=== PATIENT | female | born 1980 | race Caucasian/White ===

== ENCOUNTER 2018-01-09 16:04 | Emergency (ER) | payer BC, SELFPAY ==
[2018-01-09 16:05] VITALS: BP 157/93; PULSE 84; RESP 16; TEMP 36.7; O2SAT 97; BMI 35.3
[2018-01-09 19:07] LABS: Absolute Lymphocyte Count 2.29 X10^3/ul (0.83-4.51); Absolute Neutrophil Count 4.9 X10^3/uL (2.0-7.7); Basophil# 0.01 X10^3/uL; Basophil% 0.1 % (0-1); Eosinophil# 0.17 X10^3/uL; Eosinophils% 2.2 % (0-5); Hematocrit 45.3 % (37-47); Hemoglobin 15.7 g/dl (12.0-15.0); Lymphocyte # 2.29 X10^3/ul (4.0); Lymphocyte % 29.5 % (19-41); Mean Corp Hgb Conc 34.7 g/gl (32-36); Mean Corpuscular Volume 83.7 fL (81-99); Mean Platelet Vol. 8.8 fl (6.2-12.0); Monocyte# 0.42 X10^3/uL; Monocyte% 5.4 % (0-10); Neutrophil # 4.86 X10^3/uL (2.7-7.7); Neutrophil % 62.7 % (47-70); Platelet Count 171 K/mm3 (150-450); RBC Distribution Width SD 38.7 fl (35.1-43.9); Red Blood Count 5.41 M/mm3 (4.2-5.4); White Blood Count 7.8 K/mm3 (4.4-11.0)
[2018-01-09 19:09] LABS: POSITIVE COUNT NO; POSITIVE DIFFERENTIAL NO; POSITIVE MORPHOLOGY NO
[2018-01-09 19:17] LABS: Anion Gap 8 (5-15); BUN 13 mg/dL (7-18); BUN/Creat Ratio 17.2 RATIO (10-20); Calcium,Total 8.9 mg/dL (8.5-10.1); Chloride 109 mmol/L (98-107); Creatinine, Serum 0.76 mg/dL (0.55-1.02); EST Glomerular Filtration Rate 93 mL/min (>60); Est Glom Filt Rate - Afr Amer 112 mL/min (>60); Estimated Creatinine Clearance 89.22 ml/min; Glucose 84 mg/dL (74-106); Potassium 3.8 mmol/L (3.5-5.1); Sodium Level 141 mmol/L (136-145)
[2018-01-09 19:21] VITALS: RESP 18
[2018-01-09 19:24] LABS: Bacteria 0 SEEN /hpf (None Seen); Mucous, Urine 0 SEEN /hpf (<or=2+); White Blood Cells 0 SEEN /hpf (0-5)
[2018-01-09 19:29] LABS: Color, Urine Yellow (Yellow); Glucose, Dipstick Normal (Normal); Ketone-Dipstick Negative (Negative); Leukocyte Esterase-Dipstick Negative /ul (Negative); Nitrite-Dipstick Negative (Negative); Occult Blood-Urine 10 /ul (Negative); Protein-Dipstick Negative (Negative); Urine Bilirubin Dipstick Negative (Negative); Urine Clarity Sl. Cloudy (Clear); Urine Urobilinogen Normal (Normal)
[2018-01-09 19:36] LABS: Red Blood Cells-Urine 0-5 SEEN /hpf (0-5); Squamous Epithelial Cells - UA 0-5 SEEN /hpf (5-10)
--- NOTE | 2018-01-09 20:54 | ED.VISSUMM ---
- ER Visit Summary Date of Service: 01/09/18 Chief Complaint: Abdominal pain History of Present Illness: The patient is a 37 F who has abdominal pain with onset May. She reports the pain was worse in July and August. Pain is increased over the past several days. She contacted her career guidance counselor Dr. Zeinab Tristan. She states she could not wait for her scheduled appointment January 13. She is status post hysterectomy and right oophorectomy. She has history of ovarian cyst. She states she is having pain where her cervix would be. She states the pain is worse with pelvic tilting. She denies fever, chills night sweats. She denies ocular, visual auditory symptoms. She denies cardiovascular respiratory symptoms. She does complain of frequency without dysuria or hematuria. She denies myalgias, arthralgias or back pain. She denies rash or trauma. She denies headache, anesthesia, paresthesia or motor weakness. Review of systems otherwise negative. Past medical history ovarian cyst. Physical Examination: Patient vital signs noted and blood pressure is elevated 157/93. She is afebrile. HEENT is unremarkable. Heart is regular without murmur, gallop or rub. S1 and S2 are normal. Lungs are clear to auscultation with good movement of air bilaterally. Abdomen is remarkable for 2 pain out of proportion to tactile stimulus and palpation. There is no evidence of trauma or skin lesions. There is no CVA tenderness noted. There is no evidence of inguinal hernia or inguinal lymphadenopathy. Neuro exam is nonfocal. Affect is flat Test Results: CBC is unremarkable. Hemoglobin is 15.7 which slightly elevated. Basic metabolic panel is unremarkable, chloride slightly elevated 109 UA is negative. Emergency Department Course and Treatment: With history of pain since May and exam that is medically benign doubt gynecologic origin. CBC, BMP and UA were obtained and are unremarkable. Treatment Plan: Anti-inflammatory since there is no contraindication and keep appointment with rotor coil taper for January 13Tuesday Disposition: Discharge stable condition Impression: Predominantly left lower quadrant pain unknown etiology This note was generated with Image[employer] dictation software. It may contain incorrect words, spelling, and punctuation that were not noted in review of the chart prior to signing ED Disposition - Plan for ED Patient: Disposition: Home or Assisted Living Chief Complaint: Abd Pain Instructions: ED Abdominal Pain Unkn Cause Referrals: Marilyn Olivia PA [Primary Care Provider] - Zeinab Tristan MD [STAFF PHYSICIAN] - Keep [facility]a appointment
--- NOTE | 2018-01-09 20:58 | ED.DCSUM_ITS ---
- ER Visit Summary Date of Service: 01/09/18 Chief Complaint: Abdominal pain History of Present Illness: The patient is a 37 F who has abdominal pain with onset May. She reports the pain was worse in July and August. Pain is increased over the past several days. She contacted her energy manager Dr. Zeinab Tristan. She states she could not wait for her scheduled appointment January 13. She is status post hysterectomy and right oophorectomy. She has history of ovarian cyst. She states she is having pain where her cervix would be. She states the pain is worse with pelvic tilting. She denies fever, chills night sweats. She denies ocular, visual auditory symptoms. She denies cardiovascular respiratory symptoms. She does complain of frequency without dysuria or hematuria. She denies myalgias, arthralgias or back pain. She denies rash or trauma. She denies headache, anesthesia, paresthesia or motor weakness. Review of systems otherwise negative. Past medical history ovarian cyst. Physical Examination: Patient vital signs noted and blood pressure is elevated 157/93. She is afebrile. HEENT is unremarkable. Heart is regular without murmur, gallop or rub. S1 and S2 are normal. Lungs are clear to auscultation with good movement of air bilaterally. Abdomen is remarkable for 2 pain out of proportion to tactile stimulus and palpation. There is no evidence of trauma or skin lesions. There is no CVA tenderness noted. There is no evidence of inguinal hernia or inguinal lymphadenopathy. Neuro exam is nonfocal. Affect is flat Test Results: CBC is unremarkable. Hemoglobin is 15.7 which slightly elevated. Basic metabolic panel is unremarkable, chloride slightly elevated 109 UA is negative. Emergency Department Course and Treatment: With history of pain since May and exam that is medically benign doubt gynecologic origin. CBC, BMP and UA were obtained and are unremarkable. Treatment Plan: Anti-inflammatory since there is no contraindication and keep a ppointment with clinical support tech for January 13Tuesday Disposition: Discharge stable condition Impression: Predominantly left lower quadrant pain unknown etiology This note was generated with [employer] dictation software. It may contain incorrect words, spelling, and punctuation that were not noted in review of the chart prior to signing ED Disposition - Plan for ED Patient: Disposition: Home or Assisted Living Chief Complaint: Abd Pain Instructions: ED Abdominal Pain Unkn Cause Referrals: Marilyn Olivia PA [Primary Care Provider] - Zeinab Tristan MD [STAFF PHYSICIAN] - Keep [place] appointment
[2018-01-09 21:05] VITALS: RESP 18
== END 2018-01-09 21:05 | disposition home or self-care (01) ==
PROVIDERS: Emergency Provider Emergency Medicine; Family Provider Physician Assistant; PCP Physician Assistant
DX: R10.32 Left lower quadrant pain (principal); E66.9 Obesity, unspecified
CPT/HCPCS: 80048; 81001; 85025; 99283; A4216

== ENCOUNTER → 2018-01-11 17:56 | Outpatient (CLI) | payer BC, SELFPAY ==
[2018-01-09 16:05] VITALS: BMI 35.3
--- NOTE | 2018-01-11 18:01 | US_ITS ---
STUDY: ULTRASOUND OF THE FEMALE PELVIS REASON FOR EXAM: Female, 37 years old. Left pelvic pain LMP: Unknown. TECHNIQUE: Transverse and longitudinal imaging of the pelvis was obtained transabdominally and transvaginally using real-time ultrasound. COMPARISON: Pelvic ultrasound report dated September 02, 2010 FINDINGS: The uterus is surgically absent. The right ovary is surgically absent. The left ovary is visualized. The left ovary measures 3.4 x 2.4 x 2.7 cm. There are follicles in the left ovary without a dominant cyst. There is normal arterial and normal venous vascularity. There is no visualized left adnexal mass or complex lesion. There is no fluid in the cul-de-sac. No significant abnormalities are seen on limited visualization of the urinary bladder. US/Pelvic (Non ) IMPRESSION: No abnormalities are seen in the left ovary. Normal-appearing follicles are scattered in the left ovary. The right ovary and uterus are surgically absent. There is no free fluid. Electronically Signed: Krysta Chandra MD at 22:19 EST Tel Direct: [phone], Service support ,
--- NOTE | 2018-01-11 18:02 | US_ITS ---
STUDY: ULTRASOUND OF THE FEMALE PELVIS REASON FOR EXAM: Female, 37 years old. Left pelvic pain LMP: Unknown. TECHNIQUE: Transverse and longitudinal imaging of the pelvis was obtained transabdominally and transvaginally using real-time ultrasound. COMPARISON: Pelvic ultrasound report dated September 02, 2010 FINDINGS: The uterus is surgically absent. The right ovary is surgically absent. The left ovary is visualized. The left ovary measures 3.4 x 2.4 x 2.7 cm. There are follicles in the left ovary without a dominant cyst. There is normal arterial and normal venous vascularity. There is no visualized left adnexal mass or complex lesion. There is no fluid in the cul-de-sac. No significant abnormalities are seen on limited visualization of the urinary bladder. US/Transvaginal Non- IMPRESSION: No abnormalities are seen in the left ovary. Normal-appearing follicles are scattered in the left ovary. The right ovary and uterus are surgically absent. There is no free fluid. Electronically Signed: Krysta Chandra MD at 22:19 EST Tel Direct: [phone], Service support ,
== END ==
PROVIDERS: Family Provider Physician Assistant; PCP Physician Assistant; Referring Provider Obstetrics & Gynecology; Visit Provider Obstetrics & Gynecology
DX: R10.9 Unspecified abdominal pain (principal)
CPT/HCPCS: 76830; 76856; 93976

== ENCOUNTER → 2018-01-13 14:08 | Outpatient (CLI) | payer BC, SELFPAY ==
[2018-01-09 16:05] VITALS: BMI 35.3
[2018-01-13 16:11] LABS: Estradiol 95.1 pg/mL
[2018-01-13 16:18] LABS: Progesterone Level 0.22 ng/mL (See Comment)
== END ==
PROVIDERS: Visit Provider Obstetrics & Gynecology
DX: N39.0 Urinary tract infection, site not specified (principal); N64.4 Mastodynia; N94.3 Premenstrual tension syndrome
CPT/HCPCS: 36415; 82670; 84144; 84403; 87086

== ENCOUNTER → 2018-03-15 10:33 | Outpatient (CLI) | payer BC, SELFPAY ==
[2018-03-15 13:50] LABS: Hematocrit 43.9 % (37-47); Hemoglobin 14.7 g/dl (12.0-15.0); Mean Corp Hgb Conc 33.5 g/gl (32-36); Mean Corpuscular Hgb 28.7 pg (27.0-32.0); Mean Corpuscular Volume 85.7 fL (81-99); Mean Platelet Vol. 9.7 fl (6.2-12.0); Platelet Count 178 K/mm3 (150-450); RBC Distribution Width CV 13.1 % (11.6-14.6); RBC Distribution Width SD 40.4 fl (35.1-43.9); Red Blood Count 5.12 M/mm3 (4.2-5.4); Scan Indicated on CBC? Y/N NO; White Blood Count 5.7 K/mm3 (4.4-11.0)
[2018-03-15 14:11] LABS: Estradiol 120.2 pg/mL; Free T3 2.5 pg/mL (2.18-3.98); Progesterone Level 8.11 ng/mL (See Comment); T4 Free Direct 0.99 ng/dL (0.76-1.46); Thyroid Stim Hormone (TSH) 2.15 uIU/mL (0.358-3.74)
[2018-03-15 14:12] LABS: Hemoglobin A1c 4.9 % (4.2-6.3)
== END ==
PROVIDERS: Visit Provider Obstetrics & Gynecology
DX: N94.3 Premenstrual tension syndrome (principal)
CPT/HCPCS: 36415; 82670; 83036; 84144; 84439; 84443; 84481; 85027

== ENCOUNTER → 2018-03-20 08:51 | Outpatient (CLI) | payer BC, SELFPAY ==
--- NOTE | 2018-03-20 | US_ITS ---
STUDY: ULTRASOUND BREAST - LEFT REASON FOR EXAM: Female, 37 years old. Palpable lump left breast. TECHNIQUE: Axial and longitudinal images of the LEFT breast were performed with a high resolution ultrasound transducer. COMPARISON: Comparison is made with prior mammogram done earlier today. FINDINGS: LEFT Breast: The upper outer quadrant of the left breast was examined by ultrasound. There is homogeneous fibroglandular tissue. No sonographic abnormality is seen. US/Breast Limited Unilateral IMPRESSION: No sonographic abnormality is seen. ASSESSMENT CATEGORY: BIRADS Category 1: Negative. A letter regarding these results will be sent to the patient by the facility within 30 days. Electronically Signed: Jimmy Jensen MD at 10:20 EST , Service support ,
--- NOTE | 2018-03-20 08:56 | BI_ITS ---
MAMMOGRAPHY - BILATERAL DIAGNOSTIC REASON FOR EXAM: Female, 37 years old. Pain in the left upper outer quadrant. PERTINENT HISTORY: Grandmother with breast cancer. Aunt with breast cancer. TECHNIQUE: Digital bilateral breast wilfredo (3D mammographic acquisition) in the CC and MLO projections. 2-D mediolateral oblique (MLO) and craniocaudad (CC) views of both breasts were obtained. CAD: Full Field Digital Mammography with Computer Added Detection was performed. COMPARISON: Comparison is made with prior study dated April 23, 2015. FINDINGS: Breast Composition: The breasts are heterogeneously dense, which may obscure small masses. There is a 4.2 mm x 3.6 mm well-defined nodule in the upper outer quadrant of the right breast. Correlation with ultrasound is recommended. Stable small bilateral axillary lymph nodes. No other significant abnormalities are identified. BI/DIAG MAMM W/CAD, BILAT IMPRESSION: With the patient's history of a palpable abnormality and tenderness of the upper outer quadrant of the left breast, correlation with ultrasound is recommended. Targeted ultrasound of the right breast for a 4.2 mm x 3.6 mm nodule is recommended as well. ASSESSMENT CATEGORY: BIRADS Category 0: Incomplete. Need additional imaging evaluation. A letter regarding these results will be sent to the patient by the facility within 30 days. Approximately 10% of breast cancers are not detected by mammography. A normal mammogram should not delay biopsy of a clinically suspicious abnormality. Electronically Signed: Jimmy Jensen MD at 12:52 EST , Service support ,
== END ==
PROVIDERS: Family Provider Physician Assistant; PCP Physician Assistant; Referring Provider Obstetrics & Gynecology; Visit Provider Obstetrics & Gynecology
DX: N63.0 Unspecified lump in unspecified breast (principal)
CPT/HCPCS: 76642; 77062; 77066; G0279

== ENCOUNTER → 2018-03-23 08:49 | Outpatient (CLI) | payer BC, SELFPAY ==
--- NOTE | 2018-03-23 08:51 | US_ITS ---
STUDY: ULTRASOUND BREAST - RIGHT REASON FOR EXAM: Female, 37 years old. Abnormal screening mammogram. TECHNIQUE: Axial and longitudinal images of the RIGHT breast were performed with a high resolution ultrasound transducer. COMPARISON: Comparison made with prior mammogram dated March 20, 2018. FINDINGS: RIGHT Breast: There is a 5 mm x 4 mm x 3 mm well-defined hypoechoic nodule suggestive of a small lymph node at the 10:00 position breast at 4 sinus and nipple. US/Breast Limited Unilateral IMPRESSION: The mammographic abnormality corresponds to a benign-appearing lymph node. Routine mammographic follow-up is recommended. ASSESSMENT CATEGORY: BIRADS Category 2: Benign. A letter regarding these results will be sent to the patient by the facility within 30 days. Electronically Signed: Jimmy Jensen MD at 13:51 EST , Service support ,
== END ==
PROVIDERS: Family Provider Physician Assistant; PCP Physician Assistant; Referring Provider Obstetrics & Gynecology; Visit Provider Obstetrics & Gynecology
DX: R92.2 Inconclusive mammogram (principal)
CPT/HCPCS: 76642

== ENCOUNTER → 2018-05-05 16:08 | Outpatient (CLI) | payer BC, SELFPAY ==
[2018-05-05 16:46] LABS: Absolute Lymphocyte Count 2.32 X10^3/ul (0.83-4.51); Absolute Neutrophil Count 5.9 X10^3/uL (2.0-7.7); Basophil# 0.02 X10^3/uL; Basophil% 0.2 % (0-1); Eosinophil# 0.12 X10^3/uL; Eosinophils% 1.4 % (0-5); Hematocrit 43.5 % (37-47); Hemoglobin 14.9 g/dl (12.0-15.0); Lymphocyte # 2.32 X10^3/ul (4.0); Lymphocyte % 26.2 % (19-41); Mean Corp Hgb Conc 34.3 g/gl (32-36); Mean Corpuscular Hgb 29.1 pg (27.0-32.0); Mean Platelet Vol. 9.2 fl (6.2-12.0); Monocyte# 0.45 X10^3/uL; Monocyte% 5.1 % (0-10); Neutrophil % 66.8 % (47-70); Platelet Count 190 K/mm3 (150-450); RBC Distribution Width CV 12.8 % (11.6-14.6); RBC Distribution Width SD 39.4 fl (35.1-43.9); Red Blood Count 5.12 M/mm3 (4.2-5.4); White Blood Count 8.8 K/mm3 (4.4-11.0)
[2018-05-05 16:47] LABS: POSITIVE COUNT NO; POSITIVE DIFFERENTIAL NO; POSITIVE MORPHOLOGY NO
[2018-05-05 17:02] LABS: Erythrocyte Sedimentation Rate 1 mm/hr (0-20)
[2018-05-09 13:15] LABS: EBV Acute VCA IgM < 36.0 U/mL (0.0-35.9); EBV Early Antigen IgG 20.3 U/mL (0.0-8.9)
== END ==
PROVIDERS: Family Provider Physician Assistant; PCP Physician Assistant; Referring Provider Otolaryngology Otolaryngology/Facial Plastic Surgery; Visit Provider Otolaryngology Otolaryngology/Facial Plastic Surgery
DX: J32.9 Chronic sinusitis, unspecified (principal); R50.9 Fever, unspecified; R53.83 Other fatigue
CPT/HCPCS: 36415; 85025; 85652; 86663; 86664; 86665; 87070; 87205

== ENCOUNTER 2018-11-01 15:47 | Emergency (ER) | payer BC, SELFPAY ==
[2018-11-01 15:47] VITALS: BP 135/95; PULSE 99; RESP 18; TEMP 36.8; O2SAT 99
[2018-11-01 15:48] VITALS: BP 135/95; PULSE 97; RESP 18; TEMP 36.8; O2SAT 99; BMI 38.9
--- NOTE | 2018-11-01 16:08 | EKG12_ITS ---
Test Reason : CP/PALPITATIONS Blood Pressure : / mmHG Vent. Rate : 102 BPM Atrial Rate : 102 BPM P-R Int : 160 ms QRS Dur : 108 ms QT Int : 350 ms P-R-T Axes : 061 009 047 degrees QTc Int : 456 ms Sinus tachycardia Incomplete right bundle branch block Borderline ECG Confirmed by NAWAF TIM, JACLYN ([id number]), fan mail editor DIANDRA BAPTISTE ([id number]) on 11/03/2018 10:18:54 A M Referred By: MIRANDA/KUMAR Confirmed By:DIOR MCCRACKEN MD
--- NOTE | 2018-11-01 16:10 | ED.VIS.GEN ---
History of Present Illness Chief Complaint: Palpitations Informant: Patient Onset: Hours - 2 Narrative: Patient is a 37-year-old female with history of melanoma in situ and gallbladder polyps presenting with palpitations. Patient states about 2 hours ago she suddenly felt that her heart was racing and slightly lightheaded. She states she had chest tightness associated with this. Patient states she was wearing her Fitbit and her heart rate was 140. Patient states she felt very bad with this and came to the emergency room. She notes that she has had some chest tightness that has been pleuritic in nature over the past week. In addition she does feel slightly short of breath when she takes a deep breath. She denies any cough. Notes that over the past month she had a 10 pound unintentional weight gain. In addition she has had increased facial flushing. During this episode patient also feel that she has some tingling amd paresthesias going down her left arm. Patient states she is not concern for as she has had a prior hysterectomy. Patient denies any other complaints at this time. She denies any nausea, vomiting or abdominal pain. She does get intermittent pain over her gallbladder but does not have any currently. She denies any recent travel, leg swelling or history of DVT/PE. Past Medical History - Allergies and Home Meds Allergies/Adverse Reactions: Allergies amoxicillin trihydrate [From Augmentin] Allergy (Verified 12/26/12 14:35) Rash potassium clavulanate [From Augmentin] Allergy (Verified 12/26/12 14:35) Rash Primary Care Physician: Marilyn Olivia PA [Primary Care Provider] - Surgical History: appendectomy, hysterectomy, tonsillectomy Smoking Status: Never smoker Review of Systems General: Reports: Sweats, - - Weight gain, flushing Cardiovascular: Reports: Chest pain, Palpitations, Heart racing Respiratory: Reports: Dyspnea Skin: Denies: Rash Physical Exam Vital Signs/Narrative: Vital Signs Temp Pulse Resp BP Pulse Ox 11/01/18 15:48 98.3 F 97 18 135/95 H 99 11/01/18 15:47 98.3 F 99 18 135/95 H 99 Inital Vital Signs reviewed: Yes General: Well nourished, Well developed, No Acute Distress Head: Normocephalic, Atraumatic Eyes: Perrl, EOMI ENT: Moist mucous membranes, No rhinorrhea Neck: Supple, Nontender Cardiovascular: Regular rhythm, No murmurs, Tachycardia Respiratory: No distress, CTA bilaterally, Chest nontender Abdomen: Soft, Nontender, Nondistended, Normal bowel sounds Back: Nontender, Normal Inspection Extremities: Nontender, No edema Skin: Normal color, No rash, - - Flushed Neurological: Alert, Oriented x3, Cranial nerves II-XII grossly intact, Normal Strength, Normal Sensation Psychological: Normal affect, Normal Mood Diagnostic/Tx/Re-eval Chest X-Ray - ED: 2 View, Read by ED Physician, Read by Radiologist, No Acute Disease Laboratory Results - last 24 hr 11/01/18 11/01/18 11/01/18 16:30 16:30 16:30 WBC 8.5 RBC 5.00 Hgb 14.8 Hct 43.3 MCV 86.6 MCH 29.6 MCHC 34.2 RDW Std Deviation 39.2 RDW Coeff of Katie 12.5 Plt Count 179 MPV 9.1 Immature Gran % (Auto) 0.600 Neut % (Auto) 67.6 Lymph % (Auto) 23.4 Campbell % (Auto) 5.4 Eos % (Auto) 2.6 Baso % (Auto) 0.4 Absolute Neuts (auto) 5.8 Absolute Lymphs (auto) 1.99 Nucleated RBC % 0 D-Dimer Quant (PE/DVT) 0.51 H* Sodium 139 Potassium 3.6 Chloride 109 H Carbon Dioxide 25.0 Anion Gap 5 BUN 12 Creatinine 0.95 Estim Creat Clear Calc 71.37 Est GFR (MDRD) Af Amer 86 Est GFR (MDRD) Non-Af 71 BUN/Creatinine Ratio 12.6 Glucose 103 Calcium 8.7 Total Bilirubin 0.30 AST 14 L ALT 27 Alkaline Phosphatase 51 Troponin I < 0.015 Total Protein 7.3 Albumin 3.8 Globulin 3.5 Albumin/Globulin Ratio 1.1 TSH 1.40 Diagnostic Data Chest X-Ray 11/01/18 16:44 IMPRESSION: Normal x-ray examination of the chest. Electronically Signed: Jonas Young MD at 17:05 EDT , Service support , Chest CTA 11/01/18 17:13 IMPRESSION: Normal CTA chest examination, without a demonstrated pulmonary embolism or arterial dissection. Electronically Signed: Jonas Young MD at 18:18 EDT , Service support , - Rhythm Strip Rhythm Strip: Sinus Tach Rate: 102 Ectopy: None - EKG Initial EKG Interpretation: Sinus Tachycardia, - - ID interval 160 QRS 108 QT/QTc 350/456 Normal axis Incomplete right bundle branch block Normal ST segments - Medical Decision Making Evaluated for palpitations and associated chest pain. She appears nontoxic and in no acute distress. Patient is tachycardic and slightly flushed. Vital signs are otherwise normal. EKG does not show any acute process but is consistent with a mild tachycardia. Patient's d-dimer is mildly elevated so CTA is obtained. This is negative for any acute process such as pulmonary embolism or infiltrate. Possible patient has some pleurisy which is causing the pain when she takes a deep breath. In addition patient was recently diagnosed with GERD and is on omeprazole. This might be contributing to his symptoms. TSH is normal. Do not suspect thyroid storm as a cause of her symptoms. I do not have a clear expiration for her episode of tachycardia that she had prior to arrival however I do believe she is stable for outpatient follow-up. Patient states she can follow-up with her primary care doctor later this week. She states she has not had any increased stress at home or at work and states she feels comfortable with this plan. Patient is counseled on signs and symptoms requiring return to the emergency room. Patient verbalizes agreement and understand this plan. Patient discharged home in stable and improved condition. ED Disposition - Plan for ED Patient: Disposition: Home or Assisted Living Diagnosis: Tachycardia, Chest pain Instructions: Palpitations Referrals: Marilyn Olivia PA [Primary Care Provider] - Additional Instructions: Return to the emergency room if you have sustained elevated heart rate or worsening symptoms. It is importantly follow-up with your primary care provider for further evaluation.
[2018-11-01] MEDS: 0.9% Normal Saline 1,000 ML 1000 ML IV (16:32)
[2018-11-01 16:38] LABS: Absolute Lymphocyte Count 1.99 X10^3/uL (0.83-4.51); Absolute Neutrophil Count 5.8 X10^3/uL (2.0-7.7); Basophil# 0.03 X10^3/uL; Basophil% 0.4 % (0-1); Eosinophil# 0.22 X10^3/uL; Eosinophils% 2.6 % (0-5); Hematocrit 43.3 % (37-47); Hemoglobin 14.8 g/dL (12.0-15.0); Lymphocyte # 1.99 X10^3/ul (4.0); Lymphocyte % 23.4 % (19-41); Mean Corp Hgb Conc 34.2 g/dL (32-36); Mean Corpuscular Hgb 29.6 pg (27.0-32.0); Mean Corpuscular Volume 86.6 fL (81-99); Mean Platelet Vol. 9.1 fl (6.2-12.0); Monocyte# 0.46 X10^3/uL; Monocyte% 5.4 % (0-10); NRBC Flagged by Analyzer 0 % (0-5); Neutrophil # 5.75 X10^3/uL (2.7-7.7); Neutrophil % 67.6 % (47-70); Platelet Count 179 K/mm3 (150-450); RBC Distribution Width CV 12.5 % (11.6-14.6); RBC Distribution Width SD 39.2 fl (35.1-43.9); White Blood Count 8.5 K/mm3 (4.4-11.0)
--- NOTE | 2018-11-01 16:44 | RAD_ITS ---
STUDY: X-RAY CHEST REASON FOR EXAM: Female, 37 years old. Shortness of breath, palpitations TECHNIQUE: PA and lateral views of the chest. COMPARISON: None. FINDINGS: air sampling and monitoring leads are present. The lungs are clear and expanded. There is no demonstrated pleural abnormality. Normal size heart. Normal mediastinum and fabby. Normal visualized pulmonary arteries. Normal visualized aortic arch and descending thoracic aorta. Normal visualized thoracic spine. Normal visualized ribs, clavicles, and shoulders. There is no demonstrated abnormality of the visualized soft tissue structures of the upper abdomen. RAD/Chest PA and Lateral IMPRESSION: Normal x-ray examination of the chest. Electronically Signed: Jonas Young MD at 17:05 EDT , Service support ,
[2018-11-01 16:47] VITALS: BP 113/71; PULSE 88; RESP 16; O2SAT 98
[2018-11-01 16:58] LABS: D-Dimer Quantitative (DVT/PE) 0.51 FEU/ug/m (0.27-0.49)
--- NOTE | 2018-11-01 16:58 | ED.RN ---
LAB CALLED WITH D-DIMER 0.51. NOTE LEFT FOR DR. REED.
[2018-11-01 17:00] VITALS: BP 107/66; PULSE 81; RESP 16; O2SAT 100
[2018-11-01 17:03] LABS: ALB/GLOB Ratio 1.1 RATIO (0.9-2.4); AST(SGOT) 14 U/L (15-37); Alanine Aminotransfer ALT/SGPT 27 U/L (13-56); Albumin, Serum 3.8 g/dL (3.2-5.0); Alkaline Phosphatase 51 U/L (45-117); Anion Gap 5 (5-15); BUN 12 mg/dL (7-18); BUN/Creat Ratio 12.6 RATIO (10-20); Calcium,Total 8.7 mg/dL (8.5-10.1); Chloride 109 mmol/L (98-107); Creatinine, Serum 0.95 mg/dL (0.55-1.02); EST Glomerular Filtration Rate 71 mL/min (>60); Est Glom Filt Rate - Afr Amer 86 mL/min (>60); Estimated Creatinine Clearance 71.37 ml/min; Globulin 3.5 g/dL (2.2-4.2); Glucose 103 mg/dL (74-106); Potassium 3.6 mmol/L (3.5-5.1); Protein, Total 7.3 g/dL (6.4-8.2); Sodium Level 139 mmol/L (136-145)
--- NOTE | 2018-11-01 17:13 | CT_ITS ---
STUDY: CTA CHEST REASON FOR EXAM: Female, 37 years old. Palpitations, shortness of breath today, elevated d-dimer RADIATION DOSAGE (If Supplied By Facility): CTDIvol = ( 9.98 ) mGy, DLP = ( 1006.09 ) mGycm TECHNIQUE: The examination was performed with the intravenous administration of IV Isovue 370 100. Post-processing of the angiographic images was performed, with multiplanar reformation and 3D reconstruction. Individualized dose optimization techniques were used for this CT. COMPARISON: None. FINDINGS: Normal enhancement of the main pulmonary artery and right and left pulmonary arteries. Normal enhancement of the bilateral peripheral pulmonary arteries. There is no demonstrated pulmonary embolism. Normal thoracic aorta and visualized great vessels. There is no demonstrated aortic dissection. Normal heart and pericardium. Normal mediastinum. Normal hilar regions. Normal visualized trachea and bronchi. The lungs are well expanded. Normal pulmonary parenchyma. Normal pleura. Normal chest wall structures. Normal osseous structures. Normal visualized upper abdomen. CT/CTA Chest W/WO Contrast IMPRESSION: Normal CTA chest examination, without a demonstrated pulmonary embolism or arterial dissection. Electronically Signed: Jonas Young MD at 18:18 EDT , Service support ,
[2018-11-01 18:31] VITALS: BP 110/73; PULSE 84; RESP 16; O2SAT 98
[2018-11-01 19:21] VITALS: BP 112/61; PULSE 78; RESP 16; O2SAT 98
== END 2018-11-01 19:22 | disposition home or self-care (01) ==
PROVIDERS: Emergency Provider Emergency Medicine; Family Provider Physician Assistant; PCP Physician Assistant
DX: R07.9 Chest pain, unspecified (principal); R00.0 Tachycardia, unspecified; K21.9 Gastro-esophageal reflux disease without esophagitis; Z85.820 Personal history of malignant melanoma of skin; Z79.899 Other long term (current) drug therapy
CPT/HCPCS: 71046; 71275; 80053; 84443; 84484; 85025; 85379; 93005; 96360; 99284; J7030; Q9967; A4216

== ENCOUNTER 2019-09-25 10:48 | Day surgery (SDC) | payer BC, SELFPAY ==
--- NOTE | 2019-09-18 09:15 | EKG12_ITS ---
Test Reason : PRE OP Blood Pressure : / mmHG Vent. Rate : 062 BPM Atrial Rate : 062 BPM P-R Int : 170 ms QRS Dur : 102 ms QT Int : 434 ms P-R-T Axes : 050 -08 031 degrees QTc Int : 440 ms Normal sinus rhythm with sinus arrhythmia Normal ECG Confirmed by KIANNA TIM, RACHID ([id number]), index editor DIANDRA BAPTISTE ([id number]) on 09/19/2019 1:36:26 PM Referred By: Juliette Sood Confirmed By:RACHID HUTCHISON MD
[2019-09-18 10:44] LABS: Hemoglobin 14.7 g/dL (12.0-15.0); Mean Corp Hgb Conc 33.4 g/dL (32-36); Mean Corpuscular Hgb 28.9 pg (27.0-32.0); Mean Corpuscular Volume 86.4 fL (81-99); Mean Platelet Vol. 9.3 fl (6.2-12.0); Platelet Count 232 K/mm3 (150-450); RBC Distribution Width CV 12.5 % (11.6-14.6); RBC Distribution Width SD 39.5 fl (35.1-43.9); Red Blood Count 5.09 M/mm3 (4.2-5.4); White Blood Count 6.7 K/mm3 (4.4-11.0)
[2019-09-18 11:18] LABS: Anion Gap 5 (5-15); BUN 12 mg/dL (7-18); BUN/Creat Ratio 15.5 RATIO (10-20); Calcium,Total 8.8 mg/dL (8.5-10.1); Chloride 105 mmol/L (98-107); Creatinine, Serum 0.77 mg/dL (0.55-1.02); EST Glomerular Filtration Rate 90 mL/min (>60); Est Glom Filt Rate - Afr Amer 108 mL/min (>60); Glucose 82 mg/dL (74-106); Potassium 4.1 mmol/L (3.5-5.1); Sodium Level 139 mmol/L (136-145)
--- NOTE | 2019-09-18 16:29 | PCM.HP.BLA ---
History and Physical Date of Admission: 09/25/19 HISTORY AND PHYSICAL ? Indu Aguirre 1980 ? ? REFERRING PHYSICIAN: Marilyn Olivia (Jabari* ? CHIEF COMPLAINT: No chief complaint on file. ? HPI: The patient is a 38 year old female presents with complaint of right upper quadrant abdominal pain This has been noted intermittently in the past year, however, in the past few weeks, the pain has become constant and more severe. She describes the pain as a nagging, squeezing pain, also crampy. It usually occurs after eating, it is such that she is afraid to eat due to the pain. She is trying to be careful of what she eats but it seems any type of food triggers the pain. She denies fevers, but notes occasional chills and has night sweats. She states that sometimes she has severe episode with pressure to her diaphragm causing difficulty breathing with the pain. She also notes that her stools are yellow colored and loose and floats in the toilet water. She knows of no gallbladder disease in her family. Denies icterus or jaundice. Has nausea, sometimes with dry heaves.. She denies acid indigestion and/or heartburn. She feels that to relieve the pain at night, she has to sleep sitting up. US gallbladder 08/14/2019 ? gallbladder polyps, grossly stable, if no surgery may consider f/u US in 6-12 months ? ? PAST MEDICAL HISTORY ? Adjustment disorder with depressed mood ? ? Endometriosis ? ? 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 Other specified anemias 2000 ? PCOS (polycystic ovarian syndrome) ? ? Urinary tract infection, site not specified ? ? Recurrent UTI's ? PAST SURGICAL HISTORY ? APPENDECTOMY ? ? ? HYSTERECTOMY ? ? ? with unilateral oophorectomy ? PAST SURGICAL HISTORY OF ? ? ? lasik ? PAST SURGICAL HISTORY OF ? ? ? MOLE REMOVED ? PAST SURGICAL HISTORY OF ? 11-01-10 ? Novasure ablation ? REMOVAL OF TONSILS,<12 Y/O ? ? ? Tonsillectomy ? REPAIR OF NASAL SEPTUM ? 2004 ? ? Current Outpatient Medications ? fexofenadine (VISHNU ALLERGY) 180 mg tablet Take 180 mg by mouth once daily. ? PROGESTERONE MICRONIZED TRANSDERM. Apply 60 mg as directed twice daily. ? ? MAGNESIUM ORAL Take by mouth. ? Lacto.acidophilus-Bif.animalis (PROBIOTIC) 5 billion cell cpSP Take by mouth. ? cholecalciferol (VITAMIN D) 1,000 unit tab tablet Take 2,000 Units by mouth once daily. ? ? multivitamin (DAILY MULTIPLE) ORAL tablet Take 1 tablet by mouth once daily. ? ? ALLERGIES: Augmentin [Amoxicillin-Pot Clavulanate]; Ragweed; Seasonal Allergies ? PERSONAL HISTORY: Social History ?Tobacco Use ? Smoking status: Never Smoker ? Smokeless tobacco: Never Used Substance Use Topics ? Alcohol use: No ? ? Frequency: 2-4 times a month ? ? Drinks per session: 3 or 4 ? ? Binge frequency: Never ? Drug use: No ? FAMILY HISTORY ? None Mother ? ? Hypertension Father ? ? Cancer Maternal Grandmother ? ? STOMACH AND PANCREATIC ? Cancer Maternal Grandfather ? ? LUNG ? Cancer Paternal Grandmother ? ? Cancer Paternal Grandfather ? ? PANCREATIC ? Coronary Artery Disease Maternal Uncle ? ? ? REVIEW OF SYSTEMS: General - denies fevers but notes occasional chills and also night sweats, denies anorexia, denies weight loss Cardiovascular - denies chest pain, but has pressure into diaphragm due to abdominal pain, denies history of ID Pulmonary - denies shortness of breath, denies coughing up blood Gastrointestinal - see HPI Neurological - denies seizures, denies chronic numbness/weakness of extremities, denies chronic headaches Genitourinary - denies burning with urination, denies blood in urine Hematological - denies spontaneous/prolonged bleeding, denies history of blood transfusions and/or blood clots Skin - denies nonhealing skin wounds Musculoskeletal - has muscle tension neck pain ? 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 denies hallucinations ? PHYSICAL EXAMINATION: General: The patient is 38 year old female, well nourished, well hydrated in no acute distress. The patient is oriented to time, place, and person. VITALS: Ht: 5'5 Wt: 240# Temp 98.3F Head ? Normocephalic. EOM intact with sclera clear and no icterus noted. Mouth with mucus membranes moist. Neck - supple with no jugular venous distention noted. Trachea is midline. Lungs ? clear to auscultation. Normal breath sounds. No rales/rhonchi/wheezing noted. No labored breathing noted, such as retractions. No cough heard. Heart ? normal S1 and S2 auscultated. No rubs/clicks/murmurs noted. Regular rate. Abdomen ? soft but tender in the right upper quadrant but no peritoneal signs. Normal bowel sounds. No abdominal bruits noted. Difficult to determine if any masses or organomegaly due to body habitus. Extremities ? no calf tenderness noted. No pitting edema noted. Skin ? normal skin integrity. Neurological ? gait normal, no focal deficits noted. Psych ? calm and appropriate RADIOLOGIC STUDIES: As Noted IMPRESSION: right upper quadrant abdominal pain ? PLAN: I have discussed the above with the patient. I have told patient that with surgery, I cannot guarantee that this will alleviate her symptoms. I have offered laparoscopic cholecystectomy, possible cholangiograms. I have explained the procedure to the patient. I have counseled the patient as to the risks of the procedure, including but not limited to: infection, bleeding, injury to any blood vessels/nerves, scar tissue, injury to any intraabdominal organs, injury to bowel/bladder, injury to the common bile duct/biliary tree, bile leakage, intraabdominal abscess/bleeding, hernias at incisional sites, wound infections, complications of anesthesia, (the patient's body habitus complicates her surgery on multiple levels), etc. ? the patient understands. I have also counseled patient that removal of the gallbladder may not alleviate her symptoms. She understands. The patient wishes to proceed. ? The patient was offered a surgery/procedure. The provider and patient have discussed in detail the risk of exposure to and/or potential harm posed by the COVID-19 virus with having a surgery/procedure at this time versus the risk of? delaying the surgery/procedure. It is not possible to know either the risk of delaying the surgery or procedure or chance of getting an infection with perfect accuracy, but a joint decision was made between the patient and the provider ?to proceed at this time with the scheduled surgery/procedure. ?? I have answered all questions to the patient?s satisfaction and the patient has no further questions.
[2019-09-25] VITALS (9 sets, daily range): BP systolic 94–122; BP diastolic 55–76; PULSE 54–84; RESP 16–18; TEMP 36.2–36.8; O2SAT 97–100; BMI 41.6
[2019-09-25] MEDS: Lactated Ringers 1,000 ML 75 ML IV ×2 (07:00→14:07)
--- NOTE | 2019-09-25 12:14 | PCM.DC.GB ---
Discharge Diet: No Restrictions - avoid carbonated beverages for a couple of days, drink plenty of fluids Discharge Activity: Return to Normal Activity, May not drive while taking narcotic pain medications. Lifting Restrictions: no lifting greater than 20 pounds for 2 weeks Call your doctor if your incision/area has: Continuous Slow Oozing, Foul Smelling Discharge Call your doctor if you observe: Fever of 101 or Higher Additional Instructions: Recommended pain control regimen - May take 600 mg ibuprofen (Motrin) and then in 3-4 hours, may take 650 mg acetaminophen (Tylenol), then in 3-4 hours may take 600 mg ibuprofen, then in 3-4 hours may take 650 mg acetaminophen and so on for 2-3 days May take narcotic pain medication for pain that is not controlled by above and at night for comfort through the night Leave dressings in place May get dressings wet in shower - do not scrub in the area and pat dry Do not soak - no tub baths/swimming If dressing appears to be soiled/open at one end/no longer sealed - may remove dressing but leave site uncovered (do not replace with any type of dressing) - leave steristrips in place - may get wet but do not scrub in the area and pat dry Allergies/Adverse Reactions: Allergies amoxicillin trihydrate [From Augmentin] Allergy (Verified 09/17/19 10:57) Rash potassium clavulanate [From Augmentin] Allergy (Verified 09/17/19 10:57) Rash ragweed pollen Allergy (Verified 09/17/19 11:32) Shortness of breath Medications to take at Discharge Fexofenadine HCl [Marcia Allergy] 180 mg PO BID 09/17/19 Multivitamin 1 ea PO DAILY 09/17/19 Hydrocodone/Acetaminophen [Chase 5-325 Tablet] 1 each PO Q8 PRN 5 Days #15 tablet 09/25/19 Ondansetron HCl [Zofran] 8 mg PO Q8H PRN PRN 3 Days #5 tab 09/25/19 The following prescriptions were given: Hydrocodone/Acetaminophen [Chase 5-325 Tablet] 1 each PO Q8 PRN 5 Days #15 tablet PRN Reason: Pain Score 4-10/10 Transmission Status: Sent to [facility] Ondansetron HCl [Zofran] 8 mg PO Q8H PRN PRN 3 Days #5 tab PRN Reason: Nausea/Emesis Transmission Status: Pending to [facility] Primary Care Physician: Marilyn Olivia PA [Primary Care Provider] - Test Results: Test results from this visit will be discussed in further detail at your follow-up appointment, if applicable. Please Follow Up With: Juliette Sood MD - call When: to be seen in 10-14 days, please call for date and time, thank you
--- NOTE | 2019-09-25 12:20 | PCM.OPRPT ---
Report of Operation Date of Procedure: 09/25/19 Pre-Operative Diagnosis: right upper quadrant abdominal pain, abnormal gallbladder ultrasound Post-Operative Diagnosis: same as above, normal cholangiograms Surgery/Procedure Performed:: laparoscopic cholecystectomy with intra-operative cholangiogram Description of Surgical Findings:: normal cholangiograms, hepatomegaly campaign advisor: Cam Sanchez Type of Anesthesia:: General Anesthesiologist: Walker Edmond Specimen's removed: gallbladder and contents Estimated Blood Loss (mL): < 10 ml Fluids Replaced: see anesthesia note Description of Procedure: After informed consent was given, the patient was brought to the Operating Room. Appropriate time out protocol was followed. The patient was placed in the supine position. The patient was then placed under general endotracheal anesthesia by the anesthesia provider. The abdomen was then prepped with a sterile surgical skin preparation and sterile surgical drapes were placed. An area superior to the umbilical dimple was grasped with penetrating clamps and the skin and subcutaneous tissues were infiltrated with 0.25% marcaine with epinephrine. A skin incision was then made with a 15 blade scalpel at a previous incisional scar site. The anterior abdominal wall was elevated and a Veress needle was carefully inserted into the intraabdominal cavity. It was checked to be in the proper position with a normal saline drop test. A CO2 pneumoperitoneum was then created. Once this was achieved, then the Veress needle was removed and an 11mm trocar was placed in its stead. A 10mm laparoscope was then inserted into the trocar and careful attention was directed to the intraabdominal contents. There was no evidence of injury to any intraabdominal organs from insertion of the Veress needle or the trocar. Under direct visualization, a 5mm subxiphoid trocar and two lateral 5mm right subcostal trocars were placed. The skin and subcutaneous tissues at these sites were infiltrated with 0.25% marcaine with epinephrine prior to placement of these trocars. Attention was then directed to the right upper quadrant of the abdomen. The liver was noted to be enlarged, c/w fatty infiltration of the liver. Graspers were placed in the lateral trocars to grasp the distal aspect of the gallbladder and direct it cephalad and to grasp the gallbladder at Jaquez?s pouch and direct it laterally. Dissection then began on the proximal gallbladder continuing down to the area of the triangle of Calot to bluntly dissect out the cystic duct. The neck of the gallbladder was identified and blunt dissection continued to dissect out a segment of the cystic duct. A clip was then placed on the neck of the gallbladder. A small ductotomy was then made. A Ranfac catheter was brought in through a separate skin incision and placed into the cystic duct. An intraoperative cholangiogram was performed under fluoroscopy. The xray revealed no lesions in the common bile duct, arborization of the biliary tree, and good flow into the duodenum. The Ranfac catheter was then removed and two clips were placed proximal to the ductotomy and the cystic duct was then transected. The cystic artery was visualized and bluntly isolated and then two clips were placed proximally and one clip distally and then it was transected between the proximal and distal clips. The gallbladder was then from the liver bed using electrocautery. Once from the liver bed, it was brought out via the umbilical port. It was then forwarded to pathology for analysis. The liver bed was carefully examined. There was no evidence of bile leakage or bleeding. The cystic duct stump and cystic artery stump had their clips intact and there was no evidence of bile leakage or bleeding. The remainder of the abdomen was grossly normal. The CO2 was released and all trocars removed intact. The periumbilical fascia was approximated with a [id number] 0 vicryl suture. All skin incision were closed with 4-0 monocryl in a subdermal fashion. Cavilol and Steristrips were used to reinforce the skin closure. Sterile dressings were applied to all wounds. Sponge, needle and instrument count was verified and correct at time of skin closure. The patient was extubated and brought to the Recovery Room in stable condition. - Complications none noted - Admit VTE Documentation VTE Present on Admission: Yes VTE Mechan Device Prophylaxis: SCD's
--- NOTE | 2019-09-25 12:35 | GALL_PTH ---
PATIENT: UMANG LEAHY LOC: [facility] [place] U#:[id number] AGE/SX: 38/F ROOM: RE09/25/[address]: Dr. Juliette Sood MD : 1980 BED: DIS: 09/25/2019 SPEC #: [id number] RECD: 09/25/19 14:32 STATUS: RENA RELibby #: [id number] REMBERTO: 09/25/19 12:[address]: Juliette Sood DEPT: SURGICAL PATHOLOGY RECD BY: Anatoliy Guerrier ENTERED: 09/26/19 08:53 SP TYPE: RACHAEL HUA DR: MALATHI Bhardwaj Tissues: Gallbladder, NOS Procedures: Surgery Specimen Level III HEADER OPERATION: Laparoscopic cholecystectomy with IOC PRE-OP DIAGNOSIS: Right upper quadrant abdominal pain TISSUE SUBMITTED: Gallbladder MICROSCOPIC DIAGNOSIS Gallbladder, cholecystectomy: Chronic cholecystitis and cholesterolosis. No stones are identified in the container or in the gallbladder. SJ:ruth 09/27/19 MICROSCOPIC DESCRIPTION Slides are reviewed. GROSS DESCRIPTION Received is one container labeled with the patient's name and designated gallbladder. The specimen consists of a gallbladder measuring 6.5 cm in length and up to 2.5 cm in diameter. The external surface is pink-dobbins, smooth and glistening for the most part. Focally it is granular, hemorrhagic and contains cautery artifact. The gallbladder contains green-yellow mucoid bile. No stones are identified in the container or in the gallbladder. Two small polyps are noted measuring 0.2 to 0.3 cm in greatest dimension suspicious for cholesterolosis. The gallbladder wall measures up to 0.3 cm in thickness. Jewel Inserter sections from the gallbladder and the cystic duct including polyps are submitted in one cassette. / SJ:ruth 09/26/19 TC:3 CPT: 49290
--- NOTE | 2019-09-25 12:35 | RAD_ITS ---
CLINICAL HISTORY: Female, 38 years old. Cholecystectomy PROCEDURE: CHOLANGIOGRAM - intraoperative CONSENT: Informed consent obtained SEDATION: General FLUOROSCOPY TIME (if supplied): (01) seconds Placement of the catheter and the procedure were performed by: Dr. Sood Fluoroscopy was provided by Alex Nielson, who was present in the room time of the procedure. TECHNIQUE: (All elements of maximal sterile barrier technique followed, including US elements as applicable) After the gallbladder was removed, the cystic duct remnant was cannulized and contrast injected. There is normal filling of the intra and extrahepatic ducts. No dilatation is noted. There is no extravasation of contrast, there is normal flow of contrast into the duodenum. RAD/Cholangiogram/ O R,Initial IMPRESSION: Normal intraoperative cholangiogram Electronically Signed: Deyvi Lagos MD at 15:02 EDT , Service support ,
[2019-09-25] MEDS: Bupiv/Epi 0.25% 30 ML Vial (13:45)
== END 2019-09-25 16:03 | disposition home or self-care (01) ==
LOC: SDC 10:48 → AC 10:49
PROVIDERS: Anesthesiology; PCP Physician Assistant; Referring Provider Surgery; Visit Provider Surgery
PROC: (CPT 47610; principal; 2019-09-25 12:15)
DX: K81.1 Chronic cholecystitis (principal); R16.0 Hepatomegaly, not elsewhere classified; Z87.440 Personal history of urinary (tract) infections; Z11.59 Encounter for screening for other viral diseases
CPT/HCPCS: 00790; 47563; 36415; 74300; 76000; 80048; 85027; 87635; 88304; 93005; 94799; J7120; J2405; U0003

== ENCOUNTER → 2019-11-15 | Outpatient (CLI) | payer BC, SELFPAY ==
[2019-09-25 11:19] VITALS: BMI 41.6
--- NOTE | 2019-11-15 07:13 | BI_ITS ---
MAMMOGRAPHY - BILATERAL SCREENING REASON FOR EXAM: Female, 38 years old. Routine annual screening examination. PERTINENT HISTORY: Grandmother with breast cancer. Aunts with breast cancer. TECHNIQUE: Digital bilateral breast chandler (3D mammographic acquisition) in the CC and MLO projections. 2-D mediolateral oblique (MLO) and craniocaudad (CC) views of both breasts were obtained. CAD: Full Field Digital Mammography with Computer Added Detection was performed. COMPARISON: Comparison is made with prior study dated 03/20/2018 and 04/23/2015. FINDINGS: Breast Composition: The breasts are heterogeneously dense, which may obscure small masses. There are no dominant masses or suspicious calcifications. Stable 4 mm x 3.6 mm well-defined nodule in the upper-outer quadrant of the right breast. Prior ultrasound demonstrated it to be a small lymph node. Stable benign-appearing bilateral axillary No other significant abnormalities are identified. There has been no significant change since the prior study. BI/SCREEN MAMM (CAD) W/CHANDLER BILAT IMPRESSION: Stable bilateral screening mammogram. Yearly follow-up mammogram recommended. (A) ASSESSMENT CATEGORY: BIRADS Category 2: Benign. A letter regarding these results will be sent to the patient by the facility within 30 days. Approximately 10% of breast cancers are not detected by mammography. A normal mammogram should not delay biopsy of a clinically suspicious abnormality. [id number] Electronically Signed: Jimmy Jensen, at 12:22 EDT , Service support ,
== END | disposition home or self-care (01) ==
LOC: OPBI 07:11
PROVIDERS: PCP Physician Assistant; Referring Provider Student in an Organized Health Care Education/Training Program; Visit Provider Student in an Organized Health Care Education/Training Program
DX: Z12.31 Encounter for screening mammogram for malignant neoplasm of breast (principal)
CPT/HCPCS: 77063; 77067

== ENCOUNTER → 2020-05-07 13:35 | Outpatient (CLI) | payer BC, SELFPAY ==
[2019-09-25 11:19] VITALS: BMI 41.6
[2020-05-07 14:55] LABS: Follicle Stimulating Hormone 5.3 mIU/mL; Thyroid Stim Hormone (TSH) 2.27 uIU/mL (0.358-3.74)
== END ==
LOC: WOBLAB 13:36
PROVIDERS: PCP Physician Assistant; Visit Provider Obstetrics & Gynecology
DX: N95.1 Menopausal and female climacteric states (principal)
CPT/HCPCS: 36415; 83001; 84443

== ENCOUNTER 2020-06-09 09:00 | Outpatient (RCR) | payer BC, SELFPAY ==
[2019-09-25 11:19] VITALS: BMI 41.6
--- NOTE | 2020-06-09 09:37 | BH.COMM ---
Communication Note - Communication with Client Communication Note: Completed initial paperwork. Pt reports improved symptoms since pre-admission screening. Denies any plan or intent this weekend. Future-oriented. Protective factors. Completed [place] Suicide Screening. Not imminent risk.
--- NOTE | 2020-06-09 10:08 | BH.SGPN.GN ---
Behaviors/Verbalizations/Mental Status: []Client alert and oriented, neatly dressed and groomed. Eye contact good. Motor activity appropriate. Speech within normal limits. Affect constricted, mood anxious. Thoughts linear, logical, no signs of hallucinations or delusions. Client Response/Progress/Benefit: []Pt responded well to session AEB contributing to discussion. Pt connected with quote about how being flexible can improve resilience. Pt stated she has been ?the oak that resists? and that leads to more problems. Pt worked with the group during discussion of the costs of resisting change and the benefits of adapting to adversity. Group identified costs of resisting change included: staying stuck, difficulty managing crises, increased depression, increased anxiety, and increased negative self-talk. Attentive during psychoeducation on various bernard factors in developing personal resilience. Pt contributed during group discussion identifying benefits of each factor in fostering resilience. Pt seemed to benefit from increasing awareness of strategies to increase personal resilience and the impacts of resilience on managing mental health sx. Will continue PHP tx to prevent decompensation, improve daily functioning, and increase self-care. Narrative Note: []
--- NOTE | 2020-06-09 11:08 | BH.SGPN.GN ---
Behaviors/Verbalizations/Mental Status: []Client alert and oriented, neatly dressed and groomed. Eye contact good. Motor activity appropriate. Speech within normal limits. Affect constricted, mood anxious. Thoughts linear, logical, no signs of hallucinations or delusions. Client Response/Progress/Benefit: []Client responded well to session, engaged and participated throughout discussion. Client participated in the discussion of how each resiliency component can help increase personal resiliency. Client worked with group to identify ways to practice each of the resiliency traits reviewed. Provided personal examples. Client shared belief she has resilience traits such as self-awareness and taking decisive action. Client stated coming to PHP tx required a lot of admitting that she needed help. Client would like to work the resiliency trait of nurturing a positive view of herself to combat guilt and negative self-talk. Will continue PHP tx to prevent decompensation, improve mood stability, and learn healthy coping skills. Narrative Note: []
--- NOTE | 2020-06-09 14:51 | BH.MDN_ITS ---
Multi-Disciplinary Note - Note 60-min Individual Time Started:: 12:15 Date: 06/09/20 Purpose of session/treatment goals addressed:: The purpose of this session was to gather information on client's current stressors, symptoms, and treatment goals. Another goal was to build rapport and provide psychoeducation. Eye Contact:: Good - tearful throughout Motor Activity:: Appropriate Appearance:: Neat, Casual Speech:: Rapid Mood:: Anxious, Depressed Affect:: Full Thoughts:: Linear, Logical, Other - difficulty remembering dates, No evidence of hallucinations/delusions noted Staff Interventions:: Therapist used active listening and open-ended questions to explore client's current stressors, symptoms, relevant history, and identify treatment goals. Therapist used strengths perspective to build rapport, identify prior healthy coping skills used, and provide emotional support. Therapist provided psychoeducation on depression and intrusive thoughts. Therapist gave client encouragement and gently challenged inappropriate guilt. Therapist gave client homework to engage in two different kinds of basic needs self-care tonight. Client Response:: Client responded well to session, open to meeting with therapist. Client reports she has never had mental health tx before and was just connected with outpatient counseling services last week. Client discussed events leading up to seeking individual counseling and ultimately being referred to [facility] level of care. Client self-described as having an extensive trauma hx that she has never addressed or learn to effectively cope with. Noted that this along with additional workplace stressors and lack of self-care began to significantly impact her mental health and ability to function over the past year. Noted ?I just stuffed everything down until I exploded and just couldn?t take it anymore?. Shared she began having intrusive thoughts of several weeks ago which worsened following a dream in which she attempted suicide via overdose. Client noted thoughts of became so intrusive that she struggled to think of much else and began telling herself that her family would be better off without her. Reported that last she wrote a letter to her and began gathering the supplies to attempt suicide via codeine overdose. Reports researching lethal dosage amounts and was planning to overdose when her called her and interrupted the attempt. Client was then connected to counseling resources, created a safety plan which included 24 hour monitoring, and all potential lethal means were removed from the home. Discussed realizing she did not actually want to and recognized connection between limited self-care, increased stressors without health means of coping, and her mental health. Shared acknowledging work as a primary stressor and took steps to begin an extended leave of absence in order to address mental health needs. Client shared she wants to be able to eliminate intrusive thoughts of , decrease depression, improve self-care, and learn healthy coping skills. Client self- identified as prioritizing other?s needs over her own. Receptive of discussion on relationship between self-care, depression, and interpersonal relationships. Recognized she cannot be there for her supports fully until able to care for herself. Willing to begin working on increasing self-care. Client endorses low motivation, apathy, and feeling physically and emotionally exhausted. There was a discussion on how self-care will aid in breaking cycle of depression and improve energy levels long-term. Client's goal for tonight is to begin eating regular healthy meals, spend time going for a walk outside, and to attend IOP every day this week. Risks/Concerns:: Client denies any active suicidal ideations, plan, or intent as of 06/09/20. Client had a recent interrupted attempt last week and does admit to having passive thoughts of and fleeting, passive SI. Children and are her protective factors. Denies any access to lethal means, is being monitored by , and has a completed safety plan. Reports ability to maintain safety today and is willing to voluntarily be admitted to [facility] should she experience any worsening of sx. Progress Toward Goals/Plan:: Client's first day in PHP tx. Client reports initially being reluctant and anxious about getting mental health tx and taking time off of work, but now recognizes it as necessary to improve her mental health. Reports taking time off of work to attend the IOP program and is glad she took the step in order to do so. Client endorses a depressed mood, anhedonia, difficulty concentrating, racing thoughts, crying spells, fatigue, and passive thoughts of . Client reports her mental health issues have significantly impacted her overall functioning. Client reports PTSD and would like to begin working on addressing unprocessed trauma once more emotionally stable. Will continue PHP tx to prevent decompensation and learn healthy coping skills. Time Stopped:: 13:16
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
--- NOTE | 2020-06-10 09:05 | BH.SGPN.GN ---
Behaviors/Verbalizations/Mental Status: []Client alert and oriented, neatly dressed and groomed. Eye contact good. Motor activity appropriate. Speech within normal limits. Affect constricted, mood depressed and anxious. Thoughts linear, logical, no signs of hallucinations or delusions. Reviewed client?s symptom tracker and client indicated thoughts of suicide that are passive. Denies any intent to act on these thoughts. Client Response/Progress/Benefit: C[]Client responded well to session, attentive and receptive to feedback. Client reports feeling anxious and guilty this morning. Client stated she feels this way because she has not been fully honest with her mother about getting mental health help. Client is also beating herself up for waiting to get mental health help. The group did well to help normalize client's emotions and reframe negative thoughts. Client shared this weekend she watched a movie and had dinner with her family which was positive. Client also feels relieved that her stepfather no longer has cancer. Appeared to benefit from gaining support from peers. Will continue PHP tx to prevent decompensation, reduce intenstiy of SI, and gain healthy coping skills. Narrative Note: []
--- NOTE | 2020-06-10 10:09 | BH.SGPN.GN ---
Behaviors/Verbalizations/Mental Status: []Client alert and oriented, neat and casually dressed and groomed. Eye contact good. Motor activity appropriate. Speech within normal limits. Affect congruent, mood depressed. Thoughts linear, logical, no signs of hallucinations or delusions. Client Response/Progress/Benefit: []Client was an active participant AEB contributing to discussion, taking notes, and engaging in group activity. Connected with the topic of pitfalls and indicated that pitfalls can prevent us from getting help when we need it out of shame or denial. Client contributed to the group discussion on barriers that prevent from choosing a healthier path to mental wellness. Group worked together to identify examples of personal pitfalls which included; resentment/anger, stigma, shutting down, low motivation, making excuses, denial, distortions, and unhealthy coping. Client identified shame and negative self-talk as personal pitfalls that have inhibited progress in the past. Engaged during the activity by giving direction, brainstorming with group, providing supportive feedback throughout. Client benefited from group as she learned to better identify potential barriers to improving mental health symptoms. Client will continue PHP tx to increase healthy coping skills, reduce mental health sx, prevent decompensation, and maintain stability. Narrative Note: []
--- NOTE | 2020-06-10 11:10 | BH.SGPN.GN ---
Behaviors/Verbalizations/Mental Status: []Client alert and oriented, neat and casually dressed and groomed. Eye contact good. Motor activity appropriate. Speech within normal limits. Affect congruent, mood depressed. Thoughts linear, logical, no signs of hallucinations or delusions. Client Response/Progress/Benefit: []Client receptive of session, engaged throughout AEB client actively listening and contributing to discussion, as well as taking notes. Provided some personal examples and expressed connecting with fellow participants throughout group reflection. Client completed worksheet identifying personal pitfalls impacting mental health progress. Client shared she is currently struggling with negative thoughts/distortions, fear of failure/letting others down, guilt, and lack of self-care. Attentive during group brainstorm of strategies to overcome pitfalls. Client will work on overcoming her pitfall of fear of letting others down by identifying and communicating her mental health needs and limits better with supports. Benefited from identifying personal pitfalls and strategies to overcome these pitfalls. Will continue PHP tx to improve symptom management, promote healthy change behaviors and improved coping, and prevent decompensation. Narrative Note: []
--- NOTE | 2020-06-11 08:26 | BH.MDN_ITS ---
Multi-Disciplinary Note - Note 60-min Individual Time Started:: 11:59 Date: 07/01/20 Purpose of session/treatment goals addressed:: To work on goal #2 of client's tx plan. Another goal was to introduce self-care wheel as homework to begin exploring current engagement in interests, hobbies, and other areas of self- care. Eye Contact:: Good Motor Activity:: Appropriate, Restless Appearance:: Casual Speech:: Appropriate Mood:: Anxious, Depressed Affect:: Congruent Thoughts:: Linear, Logical, Other - ruminations and inappropriate guilt, No evidence of hallucinations/delusions noted, No evidence of hallucinations/delusions noted Staff Interventions:: Reviewed homework from last session and processed client's experience. Provided psychoeducation on maintenance cycles for depression, shame, and anxiety. Used cognitive restructuring to reinforce affirmations completed as homework. Used motivational interviewing. Introduced self-care wheel, reviewing different components of self-care and gave to client to complete as homework. Client Response:: Client responded well to session, open to meeting with therapist. Client shared she found the homework from last session to be particularly difficult which was an eye-opening experience. Client reflected upon struggling to identify 5 reasons why she deserves to take time to care for her own mental health. Noted historically having difficulties in prioritizing herself and often felt she did not deserve to do so. Insight on use of caring for others as a means of feeling she is needed/valued. Connected with discussion on how negative core beliefs may have impacted her self-care and reinforced depressive symptoms throughout her life. Shared feeling pressure to be a perfect mother so that she children would not have to experience any of the trauma she had in her own childhood. Additionally, reflected on the JULIO assessment she had completed in [facility] which helped client to better identify the significant ways her past trauma has impacted her relationship with herself as well. Shared wanting to work more on prioritizing herself in order to set an example for her children as well as begin believing in her own value. Receptive of psychoeducation on self-care wheel and reviewing the different self-care areas and importance of each area. Client to complete self-care wheel reflecting on what she currently does in each area. Risks/Concerns:: Client denies any active suicidal ideations, plan, or intent as of 06/11/20. Client continues to feel depressed and questions the value she has in her relationships, though is actively working to address this. No longer expresses wishing she were not alive. Future oriented and family is her protective factor. Progress Toward Goals/Plan:: Client continues to make progress in reducing external stressors impacting her anxiety and is taking steps to create long-term changes to improve symptom management long-term. Client has begun using skills such as journaling, affirmations, and spending time outdoors which she notes has been helpful. Additionally, notes she has been making progress in more openly and honestly communicating with supports. Client continues to struggle with inability to focus, issues with racing thoughts, low self-worth, inappropriate guilt, and poor self-care. Will continue PHP tx to prevent decompensation, increase application of healthy coping skills, improve self-talk, and improve functioning. Time Stopped:: 12:50
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
--- NOTE | 2020-06-11 11:07 | BH.SGPN.GN ---
Behaviors/Verbalizations/Mental Status: []Client alert and oriented, neatly dressed and groomed. Eye contact good. Motor activity appropriate. Speech within normal limits. Affect congruent, mood anxious. Thoughts linear, logical, no signs of hallucinations or delusions. Client Response/Progress/Benefit: []Client an active participant throughout AEB contributing to discussion and taking notes. Client participated in the group activity highlighting the various barriers to effectively utilizing supports and strategies the group used. Client participated in discussion of the four types of support (emotion, tangible, informational, and social) and the group listed examples for all types. Client reports wanting to work on increasing emotional support by continuing IOP and communicating with her . Client stated this will help client prevent worsening of symptoms and negative thoughts. Client plans to do this by practicing sharing her feelings rather than minimizing. Client seemed to benefit from identifying the type of support client wants to improve. Will continue PHP tx to prevent decompensation and learn healthy coping skills to manage symptoms. Narrative Note: []
[2020-06-11 11:39] VITALS: BP 126/87; PULSE 71
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
--- NOTE | 2020-06-11 13:15 | BH.DR.ITP ---
Initial Treatment Plan Patient Information Visit Information: ADMISSION DATE: EXPECTED LOS: 4-6 weeks Problems/Symptoms Problem #1:: Depression Symptom:: Sadness, hopelessness, worthlessness, anhedonia, guilt, weight gain, decreased concentration, suicidal ideation, passive thoughts of Problem #2:: Anxiety Symptom:: Worry, rumination, panic attacks, avoidance, reexperiencing, flashbacks
--- NOTE | 2020-06-12 09:00 | BH.SGPN.GN ---
Behaviors/Verbalizations/Mental Status: [] Eye contact is good. Motor activity is appropriate. Appearance is disheveled. Speech is Appropriate. Mood is depressed. Affect is congruent. Thoughts are linear and logical. No evidence of psychosis. Reviewed daily check in sheet and pt reports 2/5 for suicidal thoughts and 1/5 for intent. Client Response/Progress/Benefit: [] Pt was an active participant in group discussion on short videos on empathy and negative thoughts. Attentive. Provided appropriate feedback. Emotion for today is tired. Mental health win is that she went to the gym yesterday and worked out for 30 minutes. This was a goals of hers. Another goal is to workout for 60 minutes each week and to practice self-compassion. Slept better yesterday and believes that is being nicer to herself. Decrease in racing ruminations. Challenging her thoughts of being a burden to her and family and wants to believe support and evidence that she is not a burden. Progress noted per pt report. Benefited from group discussion, feedback, and support. Will continue in [facility] to maintain safety, improve functioning, and prevent decompensation. Narrative Note: []
--- NOTE | 2020-06-12 10:00 | BH.SGPN.GN ---
Behaviors/Verbalizations/Mental Status: [] Eye contact is good. Motor activity is appropriate. Appearance is disheveled. Speech is Appropriate. Mood is depressed. Affect is flat. Thoughts are linear and logical. No evidence of psychosis. Client Response/Progress/Benefit: [] Pt was an active participant in group discussion. Attentive during psychoeducation on different types of anxiety disorders. Along with peers provided insight on the definition of anxiety as well as the impact of anxiety which include; poor sleep, not completing tasks, poor concentration, impacts relationships, impacts work, and decreases appetite. Pt identified her physical symptoms of anxiety which are IBS, Rapid heart rate, and tight chest. Worked with peers to identify safety behaviors which included avoidance, self-harm, distraction, lashing out, and substance use. Benefited from increased insight and awareness from group discussions. Will continue in IOP to maintain safety, prevent decompensation, and improve functioning. Narrative Note: []
--- NOTE | 2020-06-12 11:15 | BH.SGPN.GN ---
Behaviors/Verbalizations/Mental Status: []Client alert and oriented, casually dressed and groomed. Eye contact fair. Motor activity appropriate. Speech within normal limits. Affect congruent, mood anxious. Thoughts linear, logical, no signs of hallucinations or delusions. Client Response/Progress/Benefit: []Client was an active participant AEB pt providing input and listening attentively to peers. Reviewed anxious thoughts and safety behaviors client engages in that reinforce anxiety. Identified personal safety behaviors to include: avoiding calls, alcohol, self-harm thoughts, and isolation. Attentive during psychoeducation on mindfulness coping skills and their impact on mental health wellness. Group was able to identify self-soothing and mind-based coping skills which included: 5-senses, meditation, deep breathing, journaling, and body scan. Client would like to work on anxiety reduction skill of body scan. Appeared to benefit from increasing repertoire of anxiety reduction skills. Client will continue IOP tx to increase healthy coping skills, challenge distorted thoughts, and prevent decompensation. Narrative Note: []
--- NOTE | 2020-06-13 08:47 | BH.MDN ---
Multi-Disciplinary Note - Note 60-min Individual Time Started:: 12:22 Date: 06/13/20 Purpose of session/treatment goals addressed:: To review PHP goals, progress, and plan of care moving forward. To identify strategies for reducing guilt and improving communication with supports. Eye Contact:: Good Motor Activity:: Appropriate Appearance:: Neat, Casual Speech:: Appropriate Mood:: Anxious, Dysthymic Affect:: Full Thoughts:: Linear, Logical, No evidence of hallucinations/delusions noted Staff Interventions:: Therapist explored client's view of progress and discussed plan of care moving forward. Therapist used strengths perspective to empower client on her progress and application of skills. Reviewed homework and discussed areas of continued stress/concern. Gently challenged use of distortions. Aided client in identifying strategies for improving communication with supports. Client Response:: Client responded well to session, open to meeting with therapist. Client reports feeling much better since the beginning of PHP. Client reports improved mood, more hopeful outlook, less intensity in depressive symptoms, increased ability to manage passive thoughts of without any active plan or intent, reduced racing thoughts, and increased functioning. Client feels ready to step down to [facility] tx as she does not feel a risk to herself or others. Client shared she has actively been taking time out to practice self-care and finds herself less stressed about doing so since taking a leave of absence from work. Expressed still needing to remind herself she is allowed to make her own self-care a priority and does not need to feel guilty about doing so. Client endorses ongoing issues with feeling like a burden and not wanting her or other supports to worry about her when they have their own issues to be concerned about. Client did well to challenge this and was able to recognize that she would want her supports to reach out for help if in the same situation. Client expressed additional concerns that her supports are going to be ?walking on eggshells around me?. Receptive of discussion on communication and importance of honestly communicating her mental health needs and concerns to her supports. Shared this has been difficult as she has struggled with shutting down regarding her mental health in the past. Receptive of reviewing various communication skills she could use wither supports. Expressed plans to sit down with her and sister this weekend to discuss areas of progress, identify and address ongoing concerns of her supports, as well as verbalize her own mental health needs and ways her supports can continue to support her moving forward. Discussed ongoing goals for IOP which would be to further improve mood, increase self-care and improve personal relationship with herself, as well as combat negative self-talk. Risks/Concerns:: Client denies any suicidal ideations, plan, or intent as of 06/13/20. Progress Toward Goals/Plan:: Client has accomplished PHP goals AEB self-report of reduced intensity of symptoms and improved functioning. Client's functioning has improved to the point that she feels confident enough to be left alone at various points throughout the day and is able to control fleeting thoughts of without it escalating. Denies any active SI since 06/05/20. Client does continue to endorse some symptoms of anxiety including ruminating thoughts. Client's symptoms of depression are continuing to improve, but there are still symptoms of guilt, low self-esteem, negative core beliefs, and disconnect that are ongoing. Time Stopped:: 13:22
--- NOTE | 2020-06-13 09:00 | BH.SGPN.GN ---
Behaviors/Verbalizations/Mental Status: [] Eye contact is good. Motor activity is appropriate. Appearance is casual. Speech is Appropriate. Mood is anxious. Affect is congruent. Thoughts are linear and logical. No evidence of psychosis. Reviewed daily check in sheet and pt reports 3/5 for suicidal thoughts and 2/5 for intent. Client Response/Progress/Benefit: [] Pt was an active participant in group discussion on short video. Video was on strategies to help with sleep. Attentive. Provided appropriate feedback. Shared with the group that she completed 60 minutes of exercise yesterday which was her goals. Stressor involves her son having a medical appt this afternoon. She states that this is a trigger due to numerous medical challenges her son has had over the years. She admits to catastrophizing and what iffing worst case scenarios. Group provided feedback and suggestions to manage the anxiety and ways to combat cognitive distortions. Progress noted per pt report. Benefited from group feedback. Will continue in [facility] to maintain safety and increase healthy coping. Narrative Note: []
--- NOTE | 2020-06-13 10:11 | BH.SGPN.GN ---
Behaviors/Verbalizations/Mental Status: []Client alert and oriented, neatly dressed and groomed. Eye contact good. Motor activity appropriate. Speech within normal limits. Affect congruent, mood dysthymic. Thoughts linear, logical, no signs of hallucinations or delusions. Client Response/Progress/Benefit: []Client engaged in session, contributing some to discussion and taking notes throughout. However, appeared more distracted by own thoughts than in prior sessions. Did well to engage as group progressed. Client participated in the discussion of problem-solving examples and the barriers that come with this. Client shared she has struggled with allowing feeling overwhelmed, catastrophizing, and focusing on potential obstacles prevent from effectively problem solving in the past. Contributed to group discussion on the benefits of effective problem-solving on mental health, sharing improved relationships and mental health as a potential benefit. Client worked with peers to brainstorm the components of A,B,C,D,E problem solving method. Client seemed to benefit from learning problem solving methods and identifying potential barriers to effective problem-solving. Reports struggling with distorted thinking patterns and unrealistic expectations of self. Will drop down to IOP level of care given progress and continue IOP tx to prevent decompensation, promote more consistent healthy skill implementation, and improve sx management. Narrative Note: []
--- NOTE | 2020-06-13 11:12 | BH.SGPN.GN ---
Behaviors/Verbalizations/Mental Status: []Eye contact is fair to good. Motor activity is appropriate. Appearance is casual, neat. Speech is Appropriate. Mood is dysthymic, anxious. Affect is constricted. Thoughts are linear and logical. No evidence of psychosis. Client Response/Progress/Benefit: []Pt responded well to session as evidenced by contributing and during challenge activity, listening to peers, and contributing more thoughts to session than in prior group. Appeared less distracted by own thoughts as a result of challenging herself to participate in activity. Pt stated the problem she wants to work on addressing is negative self-talk. Pt identified skills she can utilize to work on this problem include: increase awareness of distortions, use more positive affirmations, say affirmations out loud, and grounding skills. Discussed that working to solve this problem will aid in increasing self-confidence, improve willingness to reach out to supports, challenge negative core beliefs. Pt seemed to benefit from identifying strategies to problem solve through a problem currently impacting mental health. Recommended dropping to IOP level of care given progress made. Continued tx to further improve consistent healthy coping and self-care, reduce distorted thinking patterns, prevent decompensation. and improve mental health stability. Narrative Note: []
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
--- NOTE | 2020-06-25 08:58 | BH.MDN_ITS ---
Multi-Disciplinary Note - Note 45-min Individual Time Started:: 11:53 Date: 06/25/20 Purpose of session/treatment goals addressed:: Purpose of session was to address current symptoms and stressors. Another goal was to aid pt in challenging self-deprecating thoughts and using more self-compassionate statements. Eye Contact:: Good Motor Activity:: Appropriate Appearance:: Neat, Casual Speech:: Appropriate Mood:: Anxious, Dysthymic Affect:: Full Thoughts:: Linear, Logical, No evidence of hallucinations/delusions noted Staff Interventions:: thought challenging, CBT techniques, strengths perspective Client Response:: Client responded well to session, open to meeting with therapist. Client reports that she continues to see overall improvements in management of mental health symptoms; however, struggles at times with guilt and feeling as though she is ?letting others down?, especially in relation to work. Discussed these thoughts had been triggered by a work stressor in which she felt obligated to aid in fixing, despite still being on leave. Shared struggling with consistently maintaining healthy boundaries in the work environment as she often equates her worth with her ability to successfully accomplish tasks or perform. Identified negative thoughts of ?I am a disappointment?, ?people are ashamed of me?, ?people struggle because of me?, and ?why try if I?m just going to fail anyway??. Noted these thoughts reinforce anxiety and feelings of inadequacy. Did well to work with therapist to identify evidence against such thoughts and replace with more self-compassionate statements. Noted she would like to begin using phrases such as ?People are proud of me? and ?I?m doing what I can in this season of my life?. Shared additional insights that her expectations for self may be unrealistic and would like to work on establishing more realistic expectations of progress for herself. Identified plans to journal and practice positive self-talk statements, as well as regular self-care to continue to improve self-compassion and reduce negative self-talk. Risks/Concerns:: Client denies any suicidal ideations, plan, or intent as of 06/25/20. Progress Toward Goals/Plan:: Client continues to make progress AEB her ability to maintain safety and effectively cope with stressors as they arise. Some recent decompensation in use of negative self-talk reinforcing negative core beliefs; however, client did well to identify triggers and distortions reinforcing these thoughts. Doing well to improve on use of positive self-talk statements, as well as practice more self-compassion. Continues to report use of self-care. Will continue IOP tx to promote gains, further improve positive self- talk and compassionate statements, and prevent decompensation. Time Stopped:: 12:40
== END 2020-06-13 14:00 | disposition home or self-care (01) ==
LOC: BHPHP 09:00
PROVIDERS: PCP Family Medicine; Referring Provider Psychiatry & Neurology Psychiatry; Visit Provider Psychiatry & Neurology Psychiatry
DX: F33.2 Major depressive disorder, recurrent severe without psychotic features (principal); F41.1 Generalized anxiety disorder; F43.10 Post-traumatic stress disorder, unspecified
CPT/HCPCS: H0035; 90837; G0410

== ENCOUNTER 2020-06-17 09:00 | Outpatient (RCR) | payer BC, SELFPAY ==
[2019-09-25 11:19] VITALS: BMI 41.6
--- NOTE | 2020-06-17 10:10 | BH.SGPN.GN ---
Behaviors/Verbalizations/Mental Status: [] Eye contact is good. Motor activity is appropriate. Appearance is neat and casual. Speech is Appropriate. Mood is anxious, dysthymic. Affect is congruent. Thoughts are linear and logical. No evidence of psychosis. Client Response/Progress/Benefit: [] Pt was an engaged participant in group discussion and activity AEB providing input and encouragement, as well as taking notes throughout. Worked with group to process quote, indicating that ?our mood can impact how we see progress? and further equated goal setting to hiking. Worked with group members to identify the benefits of setting goals which include: sense of accomplishment, builds self-esteem, increases motivation, holds us accountable, and helps to measure progress. Worked with peers to identify the barriers to setting goals or things that keep us from accomplishing goals. Pt identified personal barrier to achieving goals as perfectionistic thinking, distortions, and unrealistic expectations. Attentive during psycho-education on developing SMART (Specific, Measurable, Achievable, Realistic, Timely) goals. Benefited from education on the benefits of goal-setting and increased insight into skills to set realistic and attainable goals. Narrative Note: []
--- NOTE | 2020-06-17 11:10 | BH.SGPN.GN ---
Behaviors/Verbalizations/Mental Status: []Client alert and oriented, casually dressed and groomed. Eye contact good. Motor activity appropriate. Speech within normal limits. Affect constricted, mood dysthymic. Thoughts linear, logical, no signs of hallucinations or delusions. Client Response/Progress/Benefit: []Client was engaged during discussion, did well to complete activity and process with the group. Client was willing to complete the worksheet in which she was challenged to develop a personal SMART goal. Client chose the goal to challenge negative core beliefs by reading five positive affirmations a day. Client stated this will benefit her as it will increase self-esteem, improve mood, and provide encouragement. Client identified barriers which included: poor time management, lack of motivation, negative self-talk, and guilt. Client worked with her partner in group to identify solutions for her barriers, and they were able to identify a solution for each barrier. Benefited from this group by developing a short-term SMART goal related to mental health. Client will continue IOP tx to promote gains made in PHP and to improve symptom management. Narrative Note: []
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
--- NOTE | 2020-06-17 15:02 | BH.MTP_ITS ---
[facility] - Patient Information Program Physician:: Dr. Escamilla Primary Therapist:: MARILEE Jay - Psychiatric Diagnoses Psychiatric Diagnoses:: Major depressive disorder, recurrent, severe without psychosis; generalized anxiety disorder; PTSD Diagnosis Code(s):: F 33.2 - Estimated LOS Estimated LOS (in weeks):: 6 Problem/Goal #1 - Problem/Goal #1 Stated Goal:: Client will reduce depression, guilt, and negative self-talk. Description of Barriers: Client is improving, but still continues to struggle with worrying about what other people think and fear of being a burden. Client also admits to ongoing unrealistic expectations of self and endorses negative thinking patterns. Client continues to struggle with negative core beliefs. 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 Functional Impact: The patient is a 39-year-old female with a history of depression who was referred by her outpatient provider for worsening depression and suicidal ideation and in the past 2 weeks. On June 05 the patient had suicidal ideation with a plan and intent to overdose on pills, interrupted by . Any lethal means have since been secure and client declines any active SI since 06/05/20. She does continue to endorse passive SI, but is able to manage these thoughts and notes reduction in severity and frequency. Client completed a week of PHP and did well with utilizing coping skills which resulted in symptom reduction. However, client continues to report issues with not knowing who she really is, depressive sx, worries about the future, inappropriate guilt, and anxiety. Client continues to second-guess herself and struggles with self- deprecation. Client?s functioning is improving, but it is still not at her baseline. Goal Relevant Strengths/Supports: Completed PHP with positive results. 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 Family and friends support and using coping skills. - Objectives Objective #1 Stated Objective: Client will identify at least 2-3 negative self-talk messages used to reinforce negative core beliefs and replace thoughts with positive, realistic messages. Interventions: Therapist will help client identify distorted, negative beliefs about self and replace with more realistic, affirmative messages. Therapist will use CBT to help client increase insight to the connection between thoughts, emotions, and behaviors. Therapist will also use dialectical thinking to help client combat all or nothing expectations. Therapist will encourage client to practice thought challenging. Discharge Criteria: Client will have achieved this goal when can verbalize at least 2 negative self-talk messages and effectively replace those thoughts with affirmative messages. Target Date: 07/29/20 Review Date: 07/15/20 Objective #2 Stated Objective: Client will learn and utilize 2-3 healthy coping strategies to better manage depressive symptoms and continue to reduce frequency and severity of passive SI, as shown by a reduced DSM-5 scores for depression. Interventions: Through group and individual sessions, therapist will help client identify triggers and warning signs of depression and emotional dysregulation including emotional, physical, and behavioral changes. Therapist will teach client various coping skills to manage her symptoms and give client tangible resources to use to regulate emotions. Therapist will use cognitive restructuring techniques and help client gain awareness of negative thoughts that reinforce guilt and depression. Therapist will provide psychoeducation on maintenance cycles and help client learn ways to break unhealthy maintenance cycles. Therapist will help client incorporate behavioral activation and assist client in setting SMART goals. Discharge Criteria: Client will have met this goal when she can report learning and using at least 2 coping skills to manage depressive symptoms. Additionally, client will have met this goal when her depressive symptoms have reduced on the DSM-5 scale. Target Date: 07/29/20 Review Date: 07/15/20 Problem/Goal #2 - Problem/Goal #2 Stated Goal:: Reduce intensity and duration of anxiety to improve mood stability and overall functioning. Description of Barriers: Client is improving, but still continues to struggle with worrying about what other people think and fear of being a burden. Client also admits to ongoing unrealistic expectations of self and endorses negative thinking patterns. Client continues to struggle with negative core beliefs. 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 Functional Impact: The patient is a 39-year-old female with a history of depression who was referred by her outpatient provider for worsening depression and suicidal ideation and in the past 2 weeks. On June 05 the patient had suicidal ideation with a plan and intent to overdose on pills, interrupted by . Any lethal means have since been secure and client declines any active SI since 06/05/20. She does continue to endorse passive SI, but is able to manage these thoughts and notes reduction in severity and frequency. Client completed a week of PHP and did well with utilizing coping skills which resulted in symptom reduction. However, client continues to report issues with not knowing who she really is, depressive sx, worries about the future, inappropriate guilt, and anxiety. Client continues to second-guess herself and struggles with self- deprecation. Client?s functioning is improving, but it is still not at her base line. Goal Relevant Strengths/Supports: Completed PHP with positive results. 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 Family and friends support and using coping skills. - Objectives Objective #1 Stated Objective: Client will identify 2-3 cognitive distortions that lead to worries about the future and learn 2-3 ways to manage these thoughts to better manage anxiety as shown by reduced DSM-5 scores for anxiety. Interventions: Therapist will provide education on the most common cognitive distortions and teach client the connection between thoughts, emotions, and feelings. Therapist will assist client in identifying, challenging, and replacing dysfunctional thoughts with positive, more realistic thoughts. Therapist will use CBT and DBT techniques to help client gain awareness of thinking errors and learn how to more effectively handle negative thoughts. Therapist will also use self-compassion to help client set more realistic expectations for herself. Discharge Criteria: Client will have accomplished this goal when can identify at least 2 cognitive distortions and at least 2 coping skills to manage negative thoughts. Target Date: 07/29/20 Review Date: 07/15/20 Objective #2 Stated Objective: Client will learn and implement 2-3 effective communication skills to empower client to communicate thoughts and feelings when navigating stressful situations. Interventions: Therapist will teach client effective communication skills and will provide homework for client to practice communication skills outside of sessions. Discharge Criteria: Client will have achieved this goal when she reports improved ability to navigate stressful situations with out shutting down or minimizing. Target Date: 07/29/20 Review Date: 07/15/20
--- NOTE | 2020-06-18 09:00 | BH.SGPN.GN ---
Behaviors/Verbalizations/Mental Status: [] Eye contact is good. Motor activity is appropriate. Appearance is disheveled. Speech is Appropriate. Mood is depressed. Affect is flat. Thoughts are linear and logical. No evidence of psychosis. Reviewed daily check in sheet and pt reports /5 for suicidal thoughts and /5 for intent. Client Response/Progress/Benefit: [] Pt was an active participant in group discussion. Attentive. Provided appropriate feedback. Emotion for today is tired. Pt shared that yesterday was very challenging as her son with Autism had a meltdown. She shared some specifics about the event and was proud of herself for managing the event and her response to the event. She did not ruminate, blame herself, or let the event linger with her all day. She was able to help her son calm with some skills learned in IOP. I'm proud of myself. Progress noted. Benefited from group support, encouragement, and feedback. Will continue in IOP to mainain safety, stabilize mood, and improve functioning. Narrative Note: []
--- NOTE | 2020-06-18 10:10 | BH.SGPN.GN ---
Behaviors/Verbalizations/Mental Status: []Client alert and oriented, neatly dressed and groomed. Eye contact good. Motor activity appropriate. Speech within normal limits. Affect congruent, mood euthymic. Thoughts linear, logical, no signs of hallucinations or delusions. Client Response/Progress/Benefit: []Client engaged participant AEB listening to peers and providing to discussion. Client commented on the quote as well as unhealthy coping skills. Client reported ?problems are about perspective.? Client gave examples of unhealthy coping skills such as avoidance and comparing self to others. Client stated using unhealthy coping skills often leads to negative self-talk. Group shared that people tend to use unhealthy coping skills because they are easier and provide quick relief. Client participated in the group activity and connected that a healthy foundation of coping skills is composed of healthy internal and external coping skills. Client seemed to benefit from increased awareness of the importance of increasing healthy coping skills and consequences of utilizing unhealthy coping skills. Will continue IOP tx to promote mood stability, improve daily functioning, and further increase self-care. Narrative Note: []
--- NOTE | 2020-06-18 11:12 | BH.SGPN.GN ---
Behaviors/Verbalizations/Mental Status: []Client alert and oriented, casually dressed and groomed. Eye contact good. Motor activity appropriate. Speech within normal limits. Affect congruent, mood dysthymic and anxious. Thoughts linear, logical, no signs of hallucinations or delusions Client Response/Progress/Benefit: []Client responded well to session, taking notes and contributing throughout. Appearing at times distracted by own thoughts. Group discussed the different categories of coping skills which included distraction, emotional release, grounding, self-love, and thought challenging. Client participated in creating a coping skills ?menu? from the five categories of coping skills. Client's coping skill menu included: cooking, singing, getting out in nature, personal accountability, and putting her thoughts on trial. Client has been using grounding and more active self-care skills, but wants to get better at challenging negative self-talk and managing intrusive thoughts. Appeared to benefit from increasing repertoire of healthy coping skills. Will continue tx to further improve daily functioning, increase consistency of skill application, and combat distortions. Narrative Note: []
--- NOTE | 2020-06-18 12:35 | PCM.BH.PN ---
Progress Note Progress Note: History of Present Illness/Interim History: [] The patient is a 39-year-old female with a history of depression who is seen in follow-up at the [facility] behavioral health IOP program. I last saw the patient 1 week ago and at that time she was starting the partial hospitalization program. After reviewing the chart and conversations with the staff and the patient the patient will be stepdown to the IOP program this week. She feels that the program has helped her in the past week and she feels much better. She is tolerating her Lexapro well. Her sleep is now about 8 hours a night and this is a big improvement for her. She feels that she is better able to function and handle stress at home and outside the home. She has less sadness and much less crying. She still has occasional hopelessness but this is somewhat less. She does still have occasional fleeting suicidal ideation but now only maybe twice a day and its not active at all and there is no plan. She also admits to passive thoughts still that she would not care if she . She denies active suicidal ideation or plan, homicidal ideation, hallucinations, delusions or symptoms of ruddy. Current Psychiatric Medications: [] Lexapro 10 mg p.o. nightly (x1 week). Mental Status Examination: [] Patient is a 39-year-old female who is seen wearing a mask due to the pandemic and is casually dressed and groomed with good hygiene. She is cooperative during the interview and has no psychomotor agitation or retardation. Eye contact is good and speech is normal rate and rhythm and fluent with no pressure. Mood is depressed. Affect is constricted. Thought process is goal-directed and organized. Thought content: There is fleeting suicidal ideation which is passive and occurs once or twice a day. There is evidence still of passive thoughts of . There is no evidence of active suicidal ideation, homicidal ideation, hallucinations, delusions or plan for suicide. Judgment is intact. Insight: Improving. Impulsivity: Moderate. Diagnoses: [] Fifield I: [] Major depressive disorder, recurrent, severe without psychosis; generalized anxiety disorder; PTSD Fifield II: [] Deferred Fifield III: [] Night sweats and possibly perimenopausal Fifield IV:[]] Work issues Plan: [] The patient will continue the IOP program at [facility] but will stepdown from the PHP program as she has improved. The structures, support, education, and group therapy will hopefully prevent worsening of the patient's symptoms which might require hospitalization. She felt safe during the interview and if at any time she does not feel safe she will let us know or go to the emergency room. The risks, options, possible complications and side effects of medications were again discussed with the patient and she understands and accepts these. The patient will continue the Lexapro at 10 mg p.o. daily. No medication changes were made today as she has only been taking the Lexapro for 1 week. She will continue to follow-up with her outpatient providers. I will see the patient in follow-up in 2 weeks.
--- NOTE | 2020-06-19 09:00 | BH.SGPN.GN ---
Behaviors/Verbalizations/Mental Status: []client alert and oriented, neatly dressed and groomed. Eye contact good. Motor activity appropriate. Speech within normal limits. Affect congruent, mood euthymic. Thoughts linear, logical, no signs of hallucinations or delusions. Reviewed client's symptom tracker, no SI, plan, or intent as of 06/19/20. Client Response/Progress/Benefit: []Client responded well to session, attentive and providing supportive statements. Client reports feeling proud and thankful this morning. Client shared she used her coping skills yesterday to manage some challenges and reinforce boundary at work. Client also practiced radical acceptance to help cope with a stressor involving her daughter. Client reported this stressor was hard to cope with at first, but client shared managed this much better than she would in the past. Appeared to benefit from reflecting on her progress and application of coping skills. will continue IOP tx to increase mood stability, reduce distorted thought patterns, and improve daily functioning. Narrative Note: []
--- NOTE | 2020-06-19 10:10 | BH.SGPN.GN ---
Behaviors/Verbalizations/Mental Status: [] Eye contact is good. Motor activity is appropriate. Appearance is casual. Speech is Appropriate. Mood is anxious. Affect is congruent. Thoughts are linear and logical. No evidence of psychosis. Client Response/Progress/Benefit: [] Pt was an active participant in group discussion and activity. Attentive during psychoeducation. Provided appropriate feedback. Pt along with peers were able to identify common emotions (both positive and negative) associated with change. Group was able to identify the benefits to making changes such as; personal growth, increased self-esteem, improve mindset, decrease stress, improve emotional health, increase healthy skills, and to get out of same old challenges. Pt and peers were also able to identify some obstacles to making changes which included; low motivation, lack of support, difficult to get out of comfort zone, fear of change, fear of the unknown, fear of repeating past, vulnerability, and asking for help. Pt benefited from group by increasing awareness of emotions and obstaceles associated with making changes. Pt will continue in IOP to maintain safety, increase healthy coping, and improve functioning. Narrative Note: []
--- NOTE | 2020-06-19 11:15 | BH.SGPN.GN ---
Behaviors/Verbalizations/Mental Status: []Client alert and oriented, neatly dressed and groomed. Eye contact good. Motor activity appropriate. Speech within normal limits. Affect congruent, mood euthymic. Thoughts linear, logical, no signs of hallucinations or delusions. Client Response/Progress/Benefit: []Client responded well to session AEB providing input at times during discussion, engaging in activity, and listening attentively to peers. Client contributed during psychoeducation on the change process and different emotions in each stage of change. Client reports belief she is currently in preparation stage of change. Client stated she had to use radical acceptance to help her move to preparation state. Client reported she has been making small steps to make change like challenging distorted thoughts, using calming skills, and positive affirmations. Appeared to benefit from identifying what stage of change client is in and identifying strategies to overcome barriers. Will continue IOP tx to increase healthy coping, decrease negative self-talk, and prevent decompensation.
--- NOTE | 2020-06-20 09:03 | BH.SGPN.GN ---
Behaviors/Verbalizations/Mental Status: [] Pt eye contact good, neat and casually dressed, motor activity appropriate, speech normal rate and tone, mood euthymic, congruent affect, thoughts linear and intact, no evidence of delusions or hallucinations. Patient indicated suicidal ideation as 1/5 which is below baseline, no plan or intent on daily symptom tracker. Client Response/Progress/Benefit: [] Patient engaged participant as evidenced by sharing thoughts and feelings and listening attentively to peers. Patient reported she had a positive experience yesterday as she was able to use several skills. Pt reports spending time journaling, walking laps outside, and going to her daughter?s soccer game. Expressed that her mood has overall been more positive and that she has been better equipped to cope with work related stressors. Client shared that she utilized opposite action to manage avoidance related triggers. Progress noted with patient being able to more effectively manage her emotions and self-reports of reduced depressive sx. Patient to continue IOP to maintain gains, continue to improve sx management, and prevent decompensation. Narrative Note: []
--- NOTE | 2020-06-20 10:05 | BH.SGPN.GN ---
Behaviors/Verbalizations/Mental Status: [] Eye contact is good. Motor activity is appropriate. Appearance is neat. Speech is Appropriate. Mood is anxious. Affect is congruent. Thoughts are linear and logical. No evidence of psychosis. Client Response/Progress/Benefit: [] Pt was an active participant in group discussions and activity. Attentive during psychoeducation. Fede pictures depicting her current and desired reality and shared with the group. Current reality involved her being over the waterfall that is mental health however still having obstacles, pressure, and being underwater of overwhelmed. Her desired reality involved still being in the water however not being alone, fitting in better with support, managing stressors, and having realistic goals. Identified that skills that would help move her from current to desired would be challenging her thoughts. Benefited from group by increasing current awareness and expectations for progress. Will continue in IOP to maintain safety, stabilize mood, and improve functioning. Narrative Note: []
--- NOTE | 2020-06-20 10:20 | BH.COMM ---
Communication Note - Communication with Client Communication Note: Client originally scheduled to meet for an additional individual session this week as it is her first week in IOP after stepping down from PHP level. Briefly checked-in with therapist and indicated she feels she is doing better than she had expected this week and did not need an additional session. Will meet for individual session as scheduled next week.
--- NOTE | 2020-06-20 11:15 | BH.SGPN.GN ---
Behaviors/Verbalizations/Mental Status: []Client alert and oriented, casually dressed and groomed. Eye contact good. Motor activity appropriate. Speech within normal limits. Affect congruent. mood euthymic. Thoughts linear, logical, no signs of hallucinations or delusions. Client Response/Progress/Benefit: []Client engaged participant AEB pt providing input throughout discussion, engaged in activity and appeared to listen attentively to peers. Appeared to listen ideas on how to cope with internal barriers that keep clients stuck from moving towards goals. Client able to identify barriers to desired reality which includes: inconsistent motivation, negative self-talk, panic, poor boundaries, and unrealistic expectations of self. Client stated she wants to focus on positive affirmations daily to help with negative self-talk barrier. Benefited from group by identifying obstacles and solutions to desired reality. Will continue IOP tx to prevent continue use of healthy coping skills, challenge distorted thoughts and prevent decompensation. Narrative Note: []
--- NOTE | 2020-06-25 09:03 | BH.SGPN.GN ---
Behaviors/Verbalizations/Mental Status: [] Client alert and oriented, neat and casually dressed and groomed. Eye contact good. Motor activity appropriate. Speech within normal limits. Affect constricted, mood anxious. Thoughts linear, logical, racing, no signs of hallucinations or delusions. Reviewed client?s symptom tracker, risk for suicidal ideation rated as 1/5 which is below baseline, denies plan, or intent as of 06/25/20 Client Response/Progress/Benefit: [] Client responded well to session, attentive and engaged. Client reports feeling wound tight this morning which she attributes to several stressors related to her son occurring over the weekend. Shared struggling with negative self-talk and increased anxiety as a result. Identified doing well to still reach out to friends, communicate with her , and make time for self-care. Client noted an additional work related stressor that has been unresolved and is creating extra stress. Indicated plans to address this during break between groups so she is not ruminating for remained of day. Did well to identify skills used over weekend as: communicating with supports, deep breathing, positive self-talk/encouragement, and thought challenging. Appeared to benefit from reflecting on progress and structure and support provided by group environment. Will continue IOP tx to promote gains, further decrease mental health sx, and improve daily functioning. Narrative Note: []
--- NOTE | 2020-06-26 09:00 | BH.SGPN.GN ---
Behaviors/Verbalizations/Mental Status: [] Eye contact is good. Motor activity is appropriate. Appearance is neat. Speech is Appropriate. Mood is anxious. Affect is congruent. Thoughts are linear and logical. No evidence of psychosis. Reviewed daily check in sheet and no reports of suicidal ideations or intent. Client Response/Progress/Benefit: [] Pt participated at times during the group discussion. Attentive. Provided appropriate feedback. Emotion for today is optimisitic. She utilized a great deal of skills yesterday to help manage the anxiety and stress that she was experiencing. She walked the group though her stressor which involved her son and the skills that she used (affirmation, thought-challenging, exercise). She states I was able to have fun, interact, and accomplish tasks and not let my emotions control me. Progress noted per pt report. Benefited from group support, encouragement, and feedback. Will continue in IOP level of care to maintain safety, increase and utilize coping skills, and prevent decompensation. Narrative Note: [] This psychotherapy group was provided via telehealth using two-way, real-time interactive telecommunication technology between the patients and the provider. The interactive telecommunication technology included audio and video. The patient was offered telemedicine as an option for care delivery during the COVID-19 pandemic and consented to this option. Patient location: [place] Provider located at [facility]
--- NOTE | 2020-06-26 10:10 | BH.SGPN.GN ---
This psychotherapy group was provided via telehealth using two-way, real-time interactive telecommunication technology between the patients and the provider. The interactive telecommunication technology included audio and video. The patient was offered telemedicine as an option for care delivery during the COVID-19 pandemic and consented to this option. Patient location: [place] Provider located at [facility] Behaviors/Verbalizations/Mental Status: []Client alert and oriented, neatly dressed and groomed. Eye contact good. Motor activity appropriate. Speech within normal limits. Affect congruent, mood euthymic. Thoughts linear, logical, no signs of hallucinations or delusions. Client Response/Progress/Benefit: [] Narrative Note: []
--- NOTE | 2020-06-27 09:00 | BH.SGPN.GN ---
Behaviors/Verbalizations/Mental Status: [] Eye contact is good. Motor activity is appropriate. Appearance is neat. Speech is Appropriate. Mood is euthymic. Affect is full. Thoughts are linear and logical. No evidence of psychosis. Reviewed daily check in sheet and pt reports 1/5 for suicidal thoughts and 0/5 for intent. Client Response/Progress/Benefit: [] Pt was an active participant in group discussion. Attentive. Provided appropriate feedback. Emotion for today is centered. Shared that she has been taking stressors and obstacles in stride. Practiced assertive communication with son's physician yesterday and they were able to develop a coordinated plan of care for her son, which she believes will be beneficial for son. Practiced self-care yesterday and continues to utilize thoughts reframing in the moment. Pt reports seeing the benefits of the changes that she is making. Progress noted per pt report. Benefited from group support, encouragment, and feedback. Will continue in IOP to maintain safety, prevent decompensation, and imprve functioning. Narrative Note: []
--- NOTE | 2020-06-27 10:12 | BH.SGPN.GN ---
Behaviors/Verbalizations/Mental Status: []Client alert and oriented, casually dressed, hygiene appeared to be tended to. Eye contact good. Motor activity appropriate. Speech within normal limits. Affect constricted. Mood anxious. Thoughts linear, logical, no signs of hallucinations or delusions. Client Response/Progress/Benefit: []Client responded well to session, attentive and engaged throughout discussion and activity. Client worked with group to identify impacts of fearing failure. Assisted group with identifying how fear of failure can form which includes: past failures, family dynamics, comparing self to others, and high expectations. Client seemed to connect how failures can lead to positive changes. Client appeared to benefit from gaining awareness of the impact fear of failure can have on one?s mental health and wellbeing. Will continue IOP to continue use of healthy coping, reduce negative thinking, and prevent decompensation.
--- NOTE | 2020-06-27 11:12 | BH.SGPN.GN ---
Behaviors/Verbalizations/Mental Status: []Client alert and oriented, casually dressed and groomed. Eye contact good. Motor activity WNL. Speech within normal limits. Affect congruent, mood anxious and euthymic. Thoughts linear, logical, no signs of hallucinations or delusions. Client Response/Progress/Benefit: []Client responded well to session, engaged and actively participating throughout. 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 in her job. Client able to identify thoughts and behaviors that reinforce personal fear of failure which included: not acknowledging her strengths, all or nothing expectations, family norms, self-doubt, and perfectionism. Client attentive during discussion of the different strategies to help overcome fear of failure. Identified wanting to work on acknowledging her successes by keeping track of her wins. Client appeared to benefit from learning ways to overcome fear of failure. Will continue IOP tx to continue to promote use of healthy coping skills, combat distortions, and further improve mood stability. Narrative Note: []
--- NOTE | 2020-07-01 10:16 | BH.SGPN.GN ---
Behaviors/Verbalizations/Mental Status: []Client alert and oriented, casually dressed and neatly groomed. Eye contact good. Motor activity appropriate. Speech within normal limits. Affect congruent, mood anxious. Thoughts linear, logical, no signs of hallucinations or delusions Client Response/Progress/Benefit: [] Client engaged in session AEB client providing input and personal examples, taking notes, and listening attentively to peers. Client shared connecting with the importance of setting boundaries, noting ?This is really apropos to where I?m at today.? Discussed that ?It?s in people?s nature to challenge that boundary once we set them. Especially if they feel that breaking our boundary is in their best interest?. Client assisted group with identifying barriers to setting healthy boundaries. These included: fear of abandonment, fear of being vulnerable, self-doubt, discomfort, and feeling it?s ?too hard?. Shared a personal barrier she has experienced in the past is struggling with not wanting to upset or let others down. Listened and provided examples during discussion on different types of boundaries. Client seemed to benefit from increased awareness of how boundaries impact mental health. Expressed that boundaries ?Can help us continue to challenge old core beliefs/block them off and begin building new ones?. Will continue IOP tx to improve use of healthy coping, improve boundary setting and anxiety management skills, maintain stability, and reduce mental health sx. Narrative Note: []
--- NOTE | 2020-07-01 11:19 | BH.SGPN.GN ---
ehaviors/Verbalizations/Mental Status: b[]Client alert and oriented, neatly dressed and groomed. Eye contact good. Motor activity appropriate. Speech within normal limits. Affect congruent, mood anxious. Thoughts linear, logical, no signs of hallucinations or delusions. Client Response/Progress/Benefit: []Client responded well to session, connecting with peers and receptive to supportive statements. Client engaged during psychoeducation on the different boundary styles. Client reported she has rigid and porous boundaries. Client identifies with rigid boundaries as client often keeps her emotions to herself and struggles to ask for help. Client identifies with porous as client fears letting others down and takes on more than she can manage. Client shared both these styles lead to feeling overwhelmed and more depressed. Client participated in brainstorming strategies to improve boundary setting. Client wants to work on the strategy of being assertive and avoiding vague responses. Seemed to benefit from increased awareness of how current boundary style impacts mental health and learning different strategies to improve boundary style. Client to continue IOP tx to improve mood stability, reduce distorted thought patterns, and improve daily functioning. Narrative Note: []
--- NOTE | 2020-07-02 12:23 | PCM.BH.PN ---
Progress Note Progress Note: History of Present Illness/Interim History: Patient is a 39-year-old female with a history of depression who is seen in follow-up at the [facility] behavioral health IOP program. I last saw the patient 2 weeks ago and at that time she was tolerating her Lexapro well but had only been on it for 1 week. She feels that overall she is doing okay. Patient feels that she is doing much better now. and describes her mood as very stable. She is sleeping 7 or 8 hours per night. Much improved and much less racing thoughts at night. Much less hopelessness. She said that in the past 3 weeks she has had a lot of stressful things happen at home and at work and she has been able to handle them well.. She feels this is in part due to the skill she is due to medication.learning in the IOP and She still has occasional fleeting suicidal ideation which is very passive. She states that she has had this her whole life and is uncertain that it will ever end. She may try to stay part-time all through the summer. She is working on changing her other role at work. She works from home now part-time. Denies active suicidal ideation, homicidal ideation, hallucinations. She denies plan for suicide, self-harm thoughts. Current Psychiatric Medications: [] Lexapro 10 mg p.o. nightly (x3 weeks). Mental Status Examination: [] Patient is a 39-year-old female who is seen wearing a mask due to the pandemic and is casually dressed and groomed with good hygiene. She is cooperative during the interview and has no psychomotor agitation or retardation. Eye contact is good and speech is normal rate and rhythm and fluent with no pressure. Mood is mildly depressed. Affect is full and normal. Thought process is goal-directed and organized. Thought content: There is fleeting suicidal ideation which is passive. There is no active suicidal ideation, plan for suicide, hallucinations or delusions, homicidal ideation. Judgment is intact. Insight is good. Impulsivity is moderate. Diagnoses: [] [place] I: [] Major depressive disorder, recurrent, severe without psychosis; generalized anxiety disorder; PTSD [place] II: [] Deferred [place] III: [] Night sweats and possibly perimenopausal [place] IV:[]] Work and primary support issues Plan: [] The patient will continue the IOP program at [facility] as the structure, support, education, and group therapy will hopefully prevent worsening of the patient's symptoms which might require hospitalization. She felt safe during the interview and if it anytime she does not feel safe she will let us know or go to the emergency room. The risks, options, and possible complications and side effects of the medications were again discussed with the patient and she understands and accepts these. No medication changes were made today. If the patient's anxiety does not improve over the next 2 to 4 weeks she will tell her outpatient provider and may need an increase in her Lexapro dose. I will see the patient in follow-up in 1 to 2 weeks or as needed.
--- NOTE | 2020-07-03 09:04 | BH.SGPN.GN ---
Behaviors/Verbalizations/Mental Status: []Client alert and oriented, neatly dressed and groomed. Eye contact good. Motor activity restless. Speech within normal limits. Affect congruent- tearful. mood overwhelmed. Thoughts linear, logical, no signs of hallucinations or delusions. Reviewed client?s symptom tracker. Client was 2/5 for thoughts of suicide and 1/5 for risk. Client denies any active SI, plan, or intent as of 07/03/20. Client Response/Progress/Benefit: []Client responded well to session, tearful and receptive to support. Client stated she has been struggling with guilt a lot more recently. Client feels overwhelmed this morning and shared feeling guilty about struggling with mental health and how this impacts her work. 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 Client reported she received support, but client felt overwhelmed by the interaction because she was asking me what the future looks like and I just want to be alive. Client reports feeling worried about her ability to handle setbacks and balance daily stressors once she returns to work. Group offered supportive feedback and encouragement. Appeared to benefit from processing her emotions and gently challenging distortions. Client continues to make progress in many areas, but currently struggling with anxiety about the future. Will continue IOP tx to prevent decompensation and increase resilience. Narrative Note: []
--- NOTE | 2020-07-03 10:20 | BH.SGPN.GN ---
Behaviors/Verbalizations/Mental Status: [] Eye contact is good. Alert and oriented. Motor activity is appropriate. Appearance is neat and casual. grooming is appropriate. Speech is Appropriate. Mood is anxious. Affect is congruent. Thoughts are linear and logical. No evidence of psychosis or hallucinations. Client Response/Progress/Benefit: [] Client responded well to session, engaged, and participated in discussion and group activity. Client connected with topic of managing emotions, noting ?it?s important that you can express yourself without going on a tirade.?. Remained engaged throughout discussion on common barriers to effective emotion regulation which included: shutting down, lack of healthy coping skills, learned behaviors, toxic people/environment, and suppressing emotions. Identified personal barrier of managing emotions as bottling things up and minimizing. Engaged in challenge activity highlighting the connection between communication and effective emotion regulation. Progress noted as client took a role in the activity in which she had to practice being out of control which client reports as out of her comfort zone. Client appeared to benefit from gaining increased awareness on common emotion regulation barriers and impacts of ineffective emotion regulation on mental health and personal relationships. Will continue IOP to promote continued use of healthy coping skills, increase communication with supports, and improve daily functioning. Narrative Note: []
--- NOTE | 2020-07-03 11:20 | BH.SGPN.GN ---
Behaviors/Verbalizations/Mental Status: []Client alert and oriented, casually dressed and fairly groomed. Eye contact fair. Motor activity appropriate. Speech within normal limits. Affect constricted. Mood dysthymic. Thoughts linear, logical, no signs of hallucinations or delusions. Client Response/Progress/Benefit: []Client engaged in session AEB client providing input during discussion and completed worksheet. Attentively listening during psychoeducation on 4 zones of regulation and able to identify feelings and behaviors for each zone. Worked with group to identify coping skills one can use to support self in each zone. Client reported she most often is in the yellow zone of heightened state of alertness. Client stated constantly being in the heightened state of alertness results in her burning out and moving to the low state of alertness. Recognizes she is not often in a regulated state of alertness. Benefited from increased education on zones of regulation or stages of alertness for emotions and healthy coping skills to use for each zone. Will continue IOP tx to continue use of healthy coping skills, challenge distorted thoughts, and prevent decompensation.
--- NOTE | 2020-07-04 09:01 | BH.SGPN.GN ---
Behaviors/Verbalizations/Mental Status: []Pt eye contact good, casually dressed, motor activity appropriate, speech normal rate and tone, mood euthymic, congruent affect, thoughts linear and intact, no evidence of delusions or hallucinations. Per patient symptom tracker patient denies current suicidal ideation, plan, or intent. Client Response/Progress/Benefit: []Client responded well to session as evidenced by listening attentively to others and sharing thoughts and feelings. Client stated she is doing a lot better today because she was able to work through how she was feeling yesterday by talking to supports and giving herself time to process. Client reports sometimes he just takes a day until she is able to shift her focus on the logic side of her brain versus staying stuck in her anxious and depressed. Client identified shifting her focus to getting ready for her upcoming trip this was a skill that was helpful. Identified mental positives as getting ready for weekend trip with family and going to a wedding this evening. Client seem to benefit from support from peers. Client to continue IOP to maintain gains, continue to challenge disorder thought patterns, and prevent decompensation. Narrative Note: []
--- NOTE | 2020-07-04 10:10 | BH.SGPN.GN ---
Behaviors/Verbalizations/Mental Status: [] Eye contact is good. Motor activity is appropriate. Appearance is neat. Speech is Appropriate. Mood is euthymic. Affect is full. Thoughts are linear and logical. No evidence of psychosis Client Response/Progress/Benefit: [] Pt was an active participant in group discussion and activity. Pt was attentive during psychoeducation. Participated with peers in identifying benefits to effective communication which included increased clarity, healthier relationships, needs/concerns are being addressed, improved mental health, decreased confusion/distortions, and helps one reach goals. Pt identified her barriers to effective communication as being a people pleaser and being afraid of disappointing others. Benefited from group by identifying barriers to effective communication and through insight an awareness. Will continue in IOP to maintain safety, prevent decompensation, increase healthy coping, and to improve functioning. Narrative Note: []
--- NOTE | 2020-07-04 11:13 | BH.SGPN.GN ---
Behaviors/Verbalizations/Mental Status: []Client alert and oriented, casually dressed and groomed. Eye contact good. Motor activity appropriate. Speech within normal limits. Affect congruent, mood euthymic and anxious. Thoughts linear, logical, no signs of hallucinations or delusions. Client Response/Progress/Benefit: [] Client receptive of session, providing input and taking notes throughout. Client remained attentive and contributed during psychoeducation on the four communication styles. Client reported she is mostly a passive communicator, however can become aggressive if she remains passive for too long. Client noted that this communication style can create guilt, prevents from getting needs met, and lead to self-deprecation. Attentive and contributing as group brainstormed strategies for improving effective communication. Benefited from increased insight regarding own communication style and impacts this has on overall mental health. Client identified personal communication goal is to begin communicating how she feels about the topic prior to having the conversation, i.e. ?I?m really nervous to talk about this.?. Client progressing as shown by her increased mood stability and reported improved anxiety management. Will continue IOP tx to maintain gains, improve self-esteem and prevent decompensation. Narrative Note: []
== END 2020-07-07 23:59 ==
LOC: BHIOP 09:00
PROVIDERS: PCP Family Medicine; Referring Provider Psychiatry & Neurology Psychiatry; Visit Provider Psychiatry & Neurology Psychiatry
DX: F33.2 Major depressive disorder, recurrent severe without psychotic features (principal); F41.1 Generalized anxiety disorder; F43.10 Post-traumatic stress disorder, unspecified; R61 Generalized hyperhidrosis; Z79.899 Other long term (current) drug therapy
CPT/HCPCS: H0035; 90832; 90834; 90837; 90853

== ENCOUNTER 2020-07-09 09:00 | Outpatient (RCR) | payer BC, SELFPAY ==
[2019-09-25 11:19] VITALS: BMI 41.6
--- NOTE | 2020-07-09 09:00 | BH.SGPN.GN ---
Behaviors/Verbalizations/Mental Status: []Client alert and oriented, neatly dressed and groomed. Eye contact good. Motor activity appropriate. Speech within normal limits. Affect congruent, mood euthymic. Thoughts linear, logical, no signs of hallucinations or delusions. Reviewed client?s symptom tracker, no risk for suicidal ideation, plan, or intent as of 07/09/20 Client Response/Progress/Benefit: []Client responded well to session, providing supportive feedback. Client reports feeling optimistic this morning. Client shared she and her family had a good weekend getaway to [place]. Client reported she focused on making memories by trying to stay present and let small irritants go rather than address them. Client reported this helped client not snap and have positive moments with her children. Client also set some healthy boundaries with a family member at a wedding. Client is currently stressed about her potentially getting a new job. Appeared to benefit from reflecting on progress in using calming coping skills. will continue IOP tx to promote mood stability, reduce negative thinking, and further improve self-care. Narrative Note: []
--- NOTE | 2020-07-09 10:10 | BH.SGPN.GN ---
Behaviors/Verbalizations/Mental Status: []Client alert and oriented, casually dressed and groomed. Eye contact good. Motor activity appropriate. Speech within normal limits. Affect congruent, mood euthymic. Thoughts linear, logical, no signs of hallucinations or delusions. Client Response/Progress/Benefit: []Client active participant as evidenced by providing input throughout discussion. Helped group identify what can impact automatic thoughts including: experience, learned behaviors, skills we learn, environment, mood, pain, hungry, lonely and tired. Client connected with the discussion about how distorted thought patterns can reinforce mental health symptoms and impact self-worth. Appeared to benefit from increasing awareness of cognitive distortions and how they can impact emotions and behaviors. First day of IOP tx. Will continue IOP tx to prevent decompensation, learn healthy coping skills, and reduce negative thinking.
--- NOTE | 2020-07-09 11:15 | BH.SGPN.GN ---
Behaviors/Verbalizations/Mental Status: [] Client alert and oriented, casually dressed and groomed. Eye contact good. Motor activity appropriate. Speech within normal limits. Affect congruent, mood euthymic. Thoughts linear, logical, no apparent hallucinations and delusions. Client Response/Progress/Benefit: [] Client was an active participant AEB client providing input throughout session, taking notes, and completing group activity. Attentive and contributing during psychoeducation and additional discussion on cognitive distortions. Client engaged while group practiced reframing example thoughts on the board. Client then worked within their small group to identify potential thought-challenge strategies for specific types of distortions. Client shared struggling with distortion of absolute thinking such as wanting to use affirmations like ?perseverance not perfection? as skills she would like to use to combat this distortion. Client seemed to benefit from reframing distorted thoughts and brainstorming several skills for challenging distortions. Will continue IOP tx to prevent decompensation and continue to improve mood stability and anxiety management. Narrative Note: []
--- NOTE | 2020-07-10 10:10 | BH.SGPN.GN ---
Behaviors/Verbalizations/Mental Status: [] Eye contact is good. Motor activity is appropriate. Appearance is casual. Speech is Appropriate. Mood is anxious. Affect is congruent. Thoughts are linear and logical. No evidence of psychosis. Client Response/Progress/Benefit: [] Pt was an active participant in group discussion and activity. Insight during activity that finding positive aspects of a picture was more challenging than identifying negatives. Pt along with peers were able to identify what could impact one's perspective which included; upbringing, core beliefs, environment, relationships, and sleep. Group was able to identify how a negative perspective could impact progress in mental health treatment leading to beliefs such as; I will not get better, nobody understands me, apathy, withdrawing, irritability, catastrophizing, disqualifying positives, focusing on flaws, personalizing, labeling, focusing on negatives, and convincing one to quit. Benefited from group by increasing awareness on the role of perspective in mental health wellness. Will continue in IOP to maintain safety, improve healthy coping strategies, maintain gains, and transition back to work. Narrative Note: []
--- NOTE | 2020-07-10 10:17 | BH.SGPN.GN ---
Behaviors/Verbalizations/Mental Status: []Client alert and oriented, neatly dressed and groomed. Eye contact good. Motor activity appropriate. Speech within normal limits. Affect congruent, mood euthymic. Thoughts linear, logical, no signs of hallucinations or delusions. Client Response/Progress/Benefit: []Pt engaged participant AEB pt providing input throughout session, listening attentively to peers and completing strengths exploration handout. Pt did struggle to identify strengths which included empathy, self-love, and artistic ability. Pt stated these strengths will help client?s mental health recovery by helping client understand others and be compassionate, giving client an outlet, and giving herself the same care, she would give others. Pt seemed to benefit from increased awareness of personal strengths and improved understanding how perspective can impact view of self. Pt also reflected that she did not have self-love before starting IOP tx. Pt is to continue IOP tx reduce negative thinking patterns, increase self-care, and reinforce healthy coping skills. Narrative Note: []
--- NOTE | 2020-07-11 09:00 | BH.SGPN.GN ---
Behaviors/Verbalizations/Mental Status: [] Eye contact is good. Motor activity is appropriate. Appearance is neat. Speech is Appropriate. Mood is anxious. Affect is congruent. Thoughts are linear and logical. No evidence of psychosis. Reviewed daily check in sheet and pt reports 1/5 for suicidal thoughts and 0/5 for intent. Client Response/Progress/Benefit: [] Pt was an active participant in group discussion. Attentive. Emotions for today is safe. Daily symptom tracker notes 3/5 for depression and 2/5 for anxiety. Shared that her has decided to change employers after 20 years which she states in the past would have led to significant fear, catastrophizing, and anxiety. States I'm handling this well. She reports that she is focused on being supportive of her 's decisions stating If this will make him happier it will make me happier ... regardless we will be ok. She is proud of herself for challenging cognitive distortions and accepting change even if it is uncomfortable. Progress noted. Benefited from group support, encouragement, and feedback. Will continue in IOP to maintain gains and prevent decompensation. Narrative Note: []
--- NOTE | 2020-07-11 10:10 | BH.SGPN.GN ---
Behaviors/Verbalizations/Mental Status: []Client alert and oriented, casually dressed and groomed. Eye contact good. Motor activity appropriate. Speech within normal limits. Affect congruent. Mood euthymic. Thoughts linear, logical, no signs of hallucinations or delusions. Client Response/Progress/Benefit: []Client receptive to session, participating throughout. Provided input as the group brainstormed the positive and negative aspects of stress on physical and mental health. Group did well to identify the benefits of stress as well as the impact of distress on performance and mental health. Client identified stress jar includes: mental health, work, kids health, kids behavior, family stress, past trauma, money, and daily responsibilities. Client reports when her stress jar becomes overfilled her reaction is crying, lashing out, avoidance and thoughts of suicide. Pt seemed to benefit from increased awareness of current stressors and importance of dealing with stressors. Recommended to continue IOP tx to promote use of healthy coping skills, reduce negative thinking, and prevent decompensation. Narrative Note: []
--- NOTE | 2020-07-11 11:15 | BH.SGPN.GN ---
Behaviors/Verbalizations/Mental Status: []Client alert and oriented, neatly dressed and groomed. Eye contact good. Motor activity appropriate. Speech within normal limits. Affect constricted, mood euthymic. Thoughts linear, logical, no signs of hallucinations or delusions. Client Response/Progress/Benefit: []Client engaged in session AEB listening attentively to others, taking notes, and participating in activity. Client remained attentive during discussion about the 4 A's of managing stress and discussed connecting with the various benefits of each. Client was interactive during group activity and gained insight to her automatic thoughts associated with stress. Client reports wanting to work on adapting to stress by redefining expectations and roles for work. 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 Appeared to benefit from learning different techniques to better manage stress. Client will continue IOP to promote use of healthy coping skills, further reduce intensity of symptoms, and improve self-care. Narrative Note: []
--- NOTE | 2020-07-15 09:00 | BH.SGPN.GN ---
Behaviors/Verbalizations/Mental Status: []Client alert and oriented, neatly dressed and groomed. Eye contact good. Motor activity appropriate. Speech within normal limits. Affect congruent, mood euthymic. Thoughts linear, logical, no signs of hallucinations or delusions. Reviewed client?s symptom tracker, no risk for suicidal ideation, plan, or intent as of 07/15/20 Client Response/Progress/Benefit: C[] Client responded well to session, attentive and contributing ideas to discussion. Client reports feeling relatively optimistic this morning. Client stated she had a down day over the weekend and rather than beating herself up over the why client focused on riding the wave and accepting her emotions. Client had many positives such as using self-compassion, helping her daughter cope, and having quality time with her daughter. Client continues to feel anxious about work for her and her , but client feels confident these stressors will resolve. Appeared to benefit from connecting with peers and reflecting on her wins. Will continue IOP tx to promote gains, combat distortions, and reinforce healthy coping skills. Narrative Note: []
--- NOTE | 2020-07-15 10:05 | BH.SGPN.GN ---
Behaviors/Verbalizations/Mental Status: [] Eye contact is good. Motor activity is appropriate. Appearance is casual. Speech is Appropriate. Mood is euthymic. Affect is full. Thoughts are linear and logical. No evidence of psychosis. Client Response/Progress/Benefit: [] Pt was an active participant in group discussion and activity. Attentive during psychoeducation. Group identified the benefits of making changes or taking action on their mental wellness which included; increased confidence, healthier relationships, improved emotional health, reduction of anxiety, increased awareness, and improved recognition of triggers. Pt stated that the 3 biggest obstacles for her are negative core beliefs, past trauma, and automatic negative thoughts. Increased awareness of importance of taking action in mental health and obstacles that keep them from taking action. Will continue in IOP to maintain gains, prevent decompensation, and transitioning back to work. Narrative Note: []
--- NOTE | 2020-07-15 11:10 | BH.SGPN.GN ---
Behaviors/Verbalizations/Mental Status: []Client alert and oriented, casually dressed and appropriately groomed. Eye contact good. Motor activity appropriate. Speech within normal limits. Affect congruent, mood euthymic. Thoughts linear, logical, no signs of hallucinations or delusions. Client Response/Progress/Benefit: []Client responded well to session, taking notes and participating in worksheet discussion. Client set a goal to gain control over letting automatic thoughts derail me. Client wants to be able to work on this by writing down automatic negative thoughts throughout the day and challenge thoughts in journal every evening. Client stated to accomplish this goal she will need to get a journal, schedule quiet time and talk to her supports about goal. Worked with group to brainstorm ideas to help increase follow through of goal. Appeared to benefit from identifying a small goal to benefit mental health. Will continue IOP tx to prevent decompensation, continue use of healthy coping skills, and maintain gains. Narrative Note: []
--- NOTE | 2020-07-17 10:15 | BH.SGPN.GN ---
Behaviors/Verbalizations/Mental Status: []Client alert and oriented, neatly dressed and groomed. Eye contact good. Motor activity appropriate. Speech within normal limits. Affect congruent, mood euthymic. Thoughts linear, logical, no signs of hallucinations or delusions. Client Response/Progress/Benefit: []Client was an engaged participant AEB client providing input throughout session and listened attentively to others. When discussing quote client provided an example of how our choices can change the course of our day/life. Client stated ?how you react to things is a choice? and client shared coming to IOP was a choice. The group worked together to identify barriers that keep one from choosing a new and healthier path to mental wellness. Attentive during psychoeducation on the chapters of life. Benefited from increased awareness and education on barriers to choosing new wellness paths and chapters of life. Client identified being in chapter 3 ?because it?s habitual to fall into the hole, but it?s much easier to get out.? Will continue IOP tx continue use of healthy coping skills and further improve daily functioning. Narrative Note: []
--- NOTE | 2020-07-17 11:15 | BH.SGPN.GN ---
Behaviors/Verbalizations/Mental Status: []Client alert and oriented, casual dress, hygiene appropriate. Eye contact good. Motor activity appropriate, at times. speech and tone WNL. Affect congruent. mood euthymic. Thoughts linear, logical, no signs of hallucinations or delusions. Client Response/Progress/Benefit: []Client engaged in session AEB listening to discussion and provided input at times. Client attentive during psychoeducation about importance of maintenance plans. Client did well to work with the group to brainstorm strategies to promote making progress towards their desired chapter. Pt completed provided maintenance plan worksheet in small group. Pt identified personal triggers as: overworking, allowing negative thoughts to ruminate, aggressive behavior/yelling, and negative self-talk. Identified warning signs as: increased anxiety, avoiding fun activities, sleep disturbances, and anger outbursts. Pt identified healthy coping skills as: continuing to challenge negative thoughts, communicate openly with supports, and practice relaxation skills. Seemed to benefit from increasing awareness of triggers, warning signs and coping skills. Will continue IOP tx to maintain gains, continue challenging distorted thoughts and prevent decompensation. Narrative Note: []
--- NOTE | 2020-07-18 09:05 | BH.SGPN.GN ---
Behaviors/Verbalizations/Mental Status: [] Eye contact is good. Motor activity is appropriate. Appearance is neat. Speech is Appropriate. Mood is euthymic. Affect is full. Thoughts are linear and logical. No evidence of psychosis. Reviewed daily check in sheet and no reports of suicidal ideations or intent. Client Response/Progress/Benefit: [] Pt was an active participant in group discussion. Attentive. Emotion for today is content. Shared that she is tired and unmotivated this week, however I feel emotionally good. Shared that she is not distressed and is proud that she has done will transitioning back to work. She is utilizing skills and staying positive despite some recent conflicts. Significant stressor is that he dog is ill and she is fearing the worse. She reports focusing on what she can do to help and not ruminating on things that she cannot control. Her suicidal thoughts do still occur however they are fleeting and only last moments. Progress noted per pt report. Will continue in IOP to maintain gains, increase healthy coping, and transition back to full-time work. Narrative Note: []
--- NOTE | 2020-07-18 10:10 | BH.SGPN.GN ---
Behaviors/Verbalizations/Mental Status: []Client alert and oriented, casually dressed and groomed. Eye contact fair. Motor activity appropriate. Speech within normal limits. Affect congruent, mood euthymic. Thoughts linear, logical, no signs of hallucinations or delusions. Client Response/Progress/Benefit: []Client active participant AEB client providing contributions during group discussion, and appeared to listen attentively to peers. Client connected with the topic of relationships. Client helped group discuss the benefits of relationships as well as the different types of relationships one can have. Client stated some relationships run their course. Client reported her personal upbringing contributed to her getting involved in past unhealthy relationships. Helped group identify the risk factors for unhealthy relationships which included: poor self-esteem, trauma, lonely, and lying. Worked with group to develop a list of the consequences that unhealthy relationships have on mental health. Appeared to benefit from increasing awareness of the impact unhealthy relationships can have on mental health. Pt to continue IOP to continue use of healthy coping, challenge negative thoughts and prevent decompensation. Narrative Note: []
--- NOTE | 2020-07-18 11:10 | BH.SGPN.GN ---
Behaviors/Verbalizations/Mental Status: []Client alert and oriented, neatly dressed and groomed. Eye contact good. Motor activity appropriate. Speech within normal limits. Affect congruent, mood calm. Thoughts linear, logical, no signs of hallucinations or delusions. Client Response/Progress/Benefit: []Client responded well to session, engaged and taking notes. Attentive during discussion of what traits of healthy relationships. Client reflected on one relationship in her life and weighed the positives and negatives of that relationship to see how balanced it was. Client reflected on her ?longest friend? and realized that there are more negatives than positives in this relationship, and that ?it has run its course.? Client stated moving forward, client wants to work on communicating honestly with herself and others about what client needs. appeared to benefit from brainstorming strategies to build healthier relationships. Will continue IOP tx to promote gains, further combat distortions, and improve work-related functioning. Narrative Note: []
--- NOTE | 2020-07-22 08:04 | BH.MDN_ITS ---
Multi-Disciplinary Note - Note 45-min Individual Time Started:: 09:03 Date: 07/23/20 Purpose of session/treatment goals addressed:: The purpose of this session was to review client's progress in tx thus far, as well as review strategies that will promote mood stability and gains made in IOP. Another goal was to discuss discharge recommendations and process any current stressors. Eye Contact:: Good Motor Activity:: Appropriate Appearance:: Neat, Casual Speech:: Appropriate Mood:: Euthymic, Anxious Affect:: Full Thoughts:: Linear, Logical, No evidence of hallucinations/delusions noted Staff Interventions:: Therapist used open-ended questions to explore client's thoughts on personal progress. Therapist reviewed supports and coping skills with client to promote gains and prevent setbacks. Therapist discussed aftercare plan with client and used strengths-perspective to empower client on the goals client has accomplished. Therapist discussed the benefits of ongoing maintenance and use of daily coping skills. Client Response:: Client responded well to session, open to meeting with therapist. Client reports feeling she has made much progress since beginning IOP tx and feels more capable of managing her emotions rather than ignoring of ?pushing things down?. Discussed areas in which client has seen personal progress and areas she would like to continue working on post IOP discharge. Identified progress in improved communication and relationships with supports, improved ability to manage her emotions and self-regulate, reduced anxiety and depression, improved sense of self-worth, and increased self-care. Client reports feeling more hopeful and optimistic about life overall and ability to maintain gains. Shared most benefiting from learning to accept herself more, not carry the weight of her past as much, and remember that ?not every coping skill works for every experience?. Client reviewed healthy coping skills which will help client maintain gains and prevent setbacks. Client's coping skills included: thought challenging, self-care, self-compassion, grounding, communication, and practicing radical acceptance. Client reports she still wants to work on further reducing anxiety and moving towards better coping with her past trauma as this has significantly impacted client views of herself, but client stated his is in a better place to do that now. Risks/Concerns:: Client denies any suicidal ideations, plan, or intent as of 07/22/20. Hopeful and future oriented. Progress Toward Goals/Plan:: Client has responded well to treatment and has made great progress while in IOP. Client self-reports overall improved mood, increased confidence, more positive thinking, increased ability to cope with stressors, and more consistent use of healthy coping skills. Client reports increased ability to identify and challenge negative thinking, ask for help, and realistically address stressors rather than jumping to worst case. Client still endorses some symptoms of anxiety, depression, and has negative thinking, but it is of reduced intensity. Will discharge from [facility] on Tuesday07/26/19. Time Stopped:: 09:50
--- NOTE | 2020-07-22 10:08 | BH.SGPN.GN ---
Behaviors/Verbalizations/Mental Status: []Client alert and oriented, neat and casual dress, hygiene tended to. Eye contact good. Motor activity appropriate. Speech within normal limits. Affect congruent, mood euthymic. Thoughts linear, logical, no signs of hallucinations or delusions. Client Response/Progress/Benefit: []Engaged participant AEB pt providing input when prompted throughout session and listening attentively to others. Engaged during psychoeducation portion reviewing fixed mindset, sharing personal examples of times she has struggled with fixed thinking. Pt worked with group to identify how a fixed mindset can impact mental health which included: keeping people stuck, reinforcing fear of failure, giving up, and negative self-talk. Able to identify personal examples of fixed thoughts which included ?I can?t let others down?, ?I can?t get better?, and ?I?m not worthy?. Client shared that she can connect with fear, comparison, and guilt as reinforcing fixed thoughts. Seemed to benefit from group by increasing awareness of how one's mindset can impact mental health and ability to cope. Pt will continue IOP tx this week to continue to promote healthy coping skills and continue to improve mental health sx management. Narrative Note: []
--- NOTE | 2020-07-22 11:13 | BH.SGPN.GN ---
Behaviors/Verbalizations/Mental Status: []Client alert and oriented, casually dressed and groomed. Eye contact good. Motor activity appropriate. Speech within normal limits. Affect congruent. mood euthymic. Thoughts linear, logical, no signs of hallucinations or delusions. Client Response/Progress/Benefit: []Client responded well to session, making connections during activity and able to reframe fixed thinking. Client took her fixed thought of ?I?m holding everyone back? and discussed how this thought impacts her mental health. Client was able to use reframing techniques to create a more growth mindset thought of ?I?m doing the best I can with the season of life I?m in.? Client appeared to benefit from gaining awareness of her fixed thought patterns and practicing reframing techniques with peers. Progress noted in client?s ability to reframe distorted thoughts more easily and overall improved functioning. Will continue IOP tx and discharge later this week. Client can benefit from reinforcing healthy coping skills and reviewing aftercare plan. Narrative Note: []
--- NOTE | 2020-07-24 09:00 | BH.SGPN.GN ---
Behaviors/Verbalizations/Mental Status: [] Eye contact is good. Motor activity is appropriate. Appearance is neat. Speech is Appropriate. Mood is euthymic. Affect is full. Thoughts are linear and logical. No evidence of psychosis. Reviewed daily check in sheet and no reports of suicidal ideations or intent. Client Response/Progress/Benefit: [] Pt was an active participant in group discussion on the role of enchantment on mental wellness Attentive. States I'm doing really well. Shared that she had some dental work done so she is slightly in pain and uncomfortable however continues to be engaged. Accomplished a number of tasks yesterday and continued to utilize thought-reframing throughout the day which has been extremely beneficial. Progress noted per pt report. Benefited from group support, encouragement, and feedback. Will continue in IOP to maintain gains with plan to discharge tomorrow. Narrative Note: []
--- NOTE | 2020-07-24 10:15 | BH.SGPN.GN ---
Behaviors/Verbalizations/Mental Status: []Client alert and oriented, casual dress, hygiene tended to. Eye contact fair. Motor activity appropriate. Speech within normal limits. Affect congruent. Mood euthymic. Thoughts linear, logical, no signs of hallucinations or delusions. Client Response/Progress/Benefit: []Pt responded well to session AEB engaging in group discussion and listened attentively to others. Pt assisted group with identifying benefits of emotional health which included: improved relationships, increased patience, improved regulation, and improved communication. Pt shared example of how she took time yesterday to notice the small things which made her feel happy. Pt engaged in discussion about barriers of improving emotional wellness. Seemed to benefit from increased awareness of importance of improving emotional wellness. Pt to continue IOP to continue use of healthy coping, challenge distorted thoughts and prevent decompensation. Narrative Note: []
--- NOTE | 2020-07-24 11:16 | BH.SGPN.GN ---
Behaviors/Verbalizations/Mental Status: []Client alert and oriented, casually dressed and groomed. Eye contact good. Motor activity appropriate. Speech within normal limits. Affect congruent, mood euthymic. Thoughts linear, logical, no signs of hallucinations or delusions. Client Response/Progress/Benefit: []Client responded well to session, attentive AEB contributing and taking notes throughout discussion. Client engaged in the discussion reviewing the ?10 [place] TIPS for Emotional Wellness?. Client worked within a smaller group to identify how each tip could aid in supporting personal emotional wellness and come up with ways to practice each of the tips reviewed. Client shared connecting with the emotional wellness trait of choose to be a good friend to yourself. Shared a personal examples of ways in which she has been working on improving in this area since beginning IOP tx. Client noted she would like to further work the emotion wellness trait ?Take responsibility for your own happiness? in order to continue to improve her self-worth, reduce externalization, and further empower herself to continue to practice self-care. Expressed she can practice doing so by continuing to work on using more self-accountability. Client to discharge from [facility] tomorrow and continue on an outpatient basis. Narrative Note: []
--- NOTE | 2020-07-25 08:39 | BH.AFTERPLAN ---
Aftercare Plan - Demographics Treatment End Date:: 07/25/20 Psychiatrist:: Neeta Anton Psychiatrist Office #:: [phone] [facility] Therapist:: Fransisca Ross Therapist Phone #:: [phone] - Plan Details Progress/Aftercare Plan Details:: You have made progress in improving your overall ability to make your own mental health needs a priority for you. This started with you taking the steps to seek out treatment, reflect on what you truly need, and begin asking your supports for those things. This has included learning to say ?no? at times, setting boundaries, challenging feelings of guilt by allowing yourself to receive help or take on less, and re-engage in the things that make you feel more whole. You have communicated your needs with your family, friends, and place of employment and have seen the results. Keep this up! You have been making strides in decreasing the negative self-talk and distorted thoughts that impact your mood and your mental health. You have been doing well to improve in sending yourself more find and self-compassionate messages in times of increased stress, frustration, and anxiety. You have also taken steps to improve your overall self-reflection and really taken time to stop and challenge your perspective. You have been making progress in accepting that intrusive thoughts may come, but remembering that you have the control over how you interpret them. This is a really tough skill and you have been putting forth effort to keep trying even when the thoughts are difficult to combat. Successfully able to better manage various stressful or high anxiety situations without escalating to point of crisis. AND when experiencing panic, you have been able to more easily use the delay, distract, decide technique to ensure a more rational response that you can feel alright with. You have shown progress in your ability to recognize potential warning signs/triggers that your ?jar? is getting full or that you are feeling overwhelmed/burned out and are more proactively doing things about it to help yourself refuel. You are learning to better balance your own needs with those of others. You DO NOT need to feel guilty about needing self-care. There will be setbacks and a setback does NOT mean you are starting over. Think of how much progress you?ve made and the important examples you are setting for your children. You have shown them the importance of making time for mental health. That is a priceless gift you are giving them. I encourage you to continue to develop this relationship with yourself. Balance is so important to continued progress and maintaining that you are a priority. Keep doing this, even when it?s hard to do! You decided that continuing to make you mental health a priority is a critical part of your journey moving forward and have taken very important strides in doing so. Keep working on this, it?s so important in learning to love yourself! Strategies for Success:: Opposite Action!!! ? do what will help you, even when your brain is saying ?this is too hard? or ?I don?t have time for it?, even when it feels uncomfortable, even when you are tempted to give up, close yourself off, or fall back into unhealthy past coping behaviors. Doing the hard or the anxious thing is often the healthier option. Challenge negative thought patterns by trying to look at things from the other perspective. Remember ?thoughts are thoughts, not facts?, expecially those intrusive thoughts. Theyo nly have power if you give it to them. Ask yourself ?How else can I think about this?? ?Do I have to give this thought value?? ?Is there evidence against this thought??. Remember that setbacks are just that ? setbacks. They do not mean you are starting over. Keep reminding yourself that you deserve compassion and a little amina too. Keep challenging yourself to find social activities that YOU enjoy and make YOU feel refreshed. Who and what refills your cup? Continue to make time for yourself! Self-care is bernard to maintaining progress and developing a healthier relationship with yourself! Strive to reach out to friends and supports and being your goofy awesome self, as well as letting them see the vulnerable and struggling side of yourself. There are people who care and want to see you doing well, I know you know this! Remember, they can?t help if you don?t let them know that you need it. COMMUNICATE, COMMUNICATE, COMMUNICATE. You are ALLOWED to set BOUNDARIES. Continue to make time for yourself! Self-care is bernard to maintaining progress and developing a healthier relationship with yourself! Reflect on where you've come and remember how resilient you have been. Keep going to therapy! - Appointments Appointments/Referrals to Other Services:: Follow-up with Lennie for individual counseling. Continue to work with your Primary Care Physician for ongoing support. Aftercare startes next week! - Medications Home Medications: Home Medications escitalopram oxalate [Lexapro] 10 mg PO DAILY 30 Days #30 tab 07/02/20
--- NOTE | 2020-07-25 09:04 | BH.SGPN.GN ---
Behaviors/Verbalizations/Mental Status: []Eye contact is good. Motor activity is appropriate. Appearance is neat and casual. Speech is Appropriate. Mood is euthymic. Affect is full. Thoughts are linear and logical. No evidence of psychosis. Reviewed daily check in sheet and reports of suicidal ideation rated as a 1/5 with no intent. Consistent with baseline Client Response/Progress/Benefit: []Client was an active participant in group discussion on gratitude and self-care in continued progress. Identified current emotion as ?zazzed? and attributed this to it being her last day in IOP tx. Refelcted on areas of progress as well as skills she has found helpful throughout her mental health tx. Discussed going out to dinner with her family to celebrate her graduation which felt encouraging for her. Provided suggestions to fellow participants on ways to promote progress in their own mental health tx. Benefited from group support, encouragement, and feedback. Will discharge from [facility] tx on this date and begin outpatient counseling at [facility] on a weekly basis. Narrative Note: []
--- NOTE | 2020-07-25 10:10 | BH.SGPN.GN ---
Behaviors/Verbalizations/Mental Status: [] Eye contact is good. Motor activity is appropriate. Appearance is neat. Speech is Appropriate. Mood is euthymic. Affect is full. Thoughts are linear and logical. No evidence of psychosis. Client Response/Progress/Benefit: [] Pt was an active participant in group discussion. Attentive during psychoeducation. Along with peers pt was able to provided insight on the importance of goal-setting. Group identified that goals are important b/c; they keep us looking forward, give one purpose, can provide a sense of accomplishment, they can increase confidence, and the provide one with personal growth. Group also worked together to identify barriers to goal-setting which included; lack of motivation, Fear of failure, fear of success, fear of judgement, rigid thinking, mental health struggles, having too high expectations, having no direction, and toxic people. Benefited from increased awarness of benefits and barriers to goal-setting. Pt will be discharged from [facility] today as she has met goals. Narrative Note: []
--- NOTE | 2020-07-25 12:13 | BH.DS_ITS ---
Discharge Summary - Demographics Date of Admission:: 06/17/20 Discharge Date: 07/24/20 Presenting Problems at Admission:: he patient is a 39-year-old female with a history of depression who was referred by her outpatient provider for worsening depression and suicidal ideation and in the past 2 weeks. On June 05 the patient had suicidal ideation with a plan and intent to overdose on pills, interrupted by . Any lethal means have since been secure and client declines any active SI since 06/05/20. She does continue to endorse passive SI, but is able to manage these thoughts and notes reduction in severity and frequency. Client completed a week of PHP and did well with utilizing coping skills which resulted in symptom reduction. However, client continues to report issues with not knowing who she really is, depressive sx, worries about the future, inappropriate guilt, and anxiety. Client continues to second-guess herself and struggles with self-deprecation. Client?s functioning is improving, but it is still not at her baseline. Discharge Diagnoses:: Major depressive disorder, recurrent, severe without psychosis; generalized anxiety disorder; PTSD Reason for Discharge:: Client has made significant progress AEB reduced DSM-5 scores, no longer reporting SI, and accomplishment of tx goals and no longer meets criteria for IOP level of care. - Treatment Progress During Treatment & Response: Client responded well to treatment and successfully accomplished her treatment goals. This is evidenced by an overall reduction in DSM-5 scores, no longer reports experiencing suicidal ideation, and self-report of improved functioning. When client was at group, she was an active member and receptive to learning new skills. Client did well to encourage others, provide input in group setting, and relate materials covered back to own life. Client reported using healthy coping skills to better manage symptoms of anxiety and depression, as well as improve her responses to supports during times of high stress. Client reports skills used include deep breathing, thought challenging, positive affirmations, self-reflection, and consistently communicating with her supports. Client additionally has been working to improve self-care skills and open communication with supports during times of emotional vulnerability. She reports reduced stress, improved self-advocacy and confidence, improved relationships, and better boundaries as a result. Continues to struggle with distorted thinking, unrealistic expectations, and guilt at times but has make significant gains in these areas. Client was engaged in her individual sessions and was consistent with homework completion and skill utilization outside of group. Client?s DSM-5 scores decreased by an overall 60%. Depression decreased by 63%, anxiety decreased by 44%, and irritability decreased by 67%. Issues Still to be Addressed:: Client can benefit from ongoing counseling to reinforce healthy coping skills, continue to improve self-care, challenge negative core beliefs and unrealistic expectations of self, maintain healthy boundary setting, and promote ongoing communication with support. Client will also benefit from continuing to practice using self-compassionate statements, small goal setting skills, improving self-love, and continuing to work on communicating with supports. Discharge Recommendations/Instructions:: Client is encouraged to continue outpatient counseling at [facility] on a weekly basis, intake appointment was 07/24/20. Client continues to decline wanting any outpatient psychiatry and will follow-up with PCP for ongoing medication management. Client will begin the [facility] Aftercare program next week. Discharge Handout: Complete Discharge Handout with client on aftercare options and continuity of care.
== END 2020-07-25 14:02 | disposition home or self-care (01) ==
LOC: BHIOP 09:00
PROVIDERS: PCP Family Medicine; Referring Provider Psychiatry & Neurology Psychiatry; Visit Provider Psychiatry & Neurology Psychiatry
DX: F33.2 Major depressive disorder, recurrent severe without psychotic features (principal); F41.1 Generalized anxiety disorder; F43.10 Post-traumatic stress disorder, unspecified
CPT/HCPCS: S9480; 90837; 90853

== ENCOUNTER 2020-07-31 09:00 | Outpatient (RCR) | payer BC, SELFPAY ==
[2019-09-25 11:19] VITALS: BMI 41.6
--- NOTE | 2020-07-25 11:15 | BH.SGPN.GN ---
Behaviors/Verbalizations/Mental Status: []Eye contact is good. Motor activity is appropriate. Appearance is casual. Speech is Appropriate. Mood is euthymic. Affect is congruent. Thoughts are linear and logical. No evidence of psychosis. Client Response/Progress/Benefit: []Pt was an active participant in group discussions and activities. Along with group members was able to identify barriers during group beach ball activity and strategies they utilized to overcome these barriers (communicating, encouraging others). Able to identify a SMART goal for the next week which was practice and identify self-care at least two time a day for a week. Pt reported this will benefit her decreasing stress. She was able to identify barriers and obstacles to this goals and strategies to overcome these barriers. Benefited from group by being able to utilize SMART educate to create a goal. Narrative Note: []
--- NOTE | 2020-07-31 14:00 | BH.SGPN.GN ---
Behaviors/Verbalizations/Mental Status: []Client alert and oriented, neatly dressed and groomed. Eye contact good. Motor activity appropriate. Speech within normal limits. Affect congruent, mood euthymic. Thoughts linear, logical, no signs of hallucinations or delusions. Client Response/Progress/Benefit: []Client responded well to session, client?s emotion today is ?content? as client reports doing ?okay? overall. Client returned to the office this week which is a win and a stressor for client. Client reports using healthy boundaries, deep breathing, and mindfulness. Receptive of discussion on self-talk and its influence in maintaining long-term mental health stability. Contributed to strategies for improving effective creation and application of believable personal affirmations. Client created several affirmations and shared one with the group. Client plans to put ?I?m valuable and I positively contribute to those around me? on her bathroom mirror. Client shared this will help combat negative self-talk. Client to continue aftercare group to promote gains and further increase application of healthy coping skills. Narrative Note: []
--- NOTE | 2020-07-31 14:19 | BH.MTP ---
Master Treatment Plan - Patient Information Program Physician:: Dr. Neeta Anton Primary Therapist:: Fransisca HUNT - Psychiatric Diagnoses Psychiatric Diagnoses:: Major depressive disorder, recurrent, severe without psychosis F 33.2; generalized anxiety disorder; PTSD Diagnosis Code(s):: F 33.2 - Estimated LOS Estimated LOS (in weeks):: 12 Problem/Goal #1 - Problem/Goal #1 Stated Goal:: client will maintain or see a reduction in symptoms AEB client score on the DSM 5 cross-cutting measure and improve client's daily functioning. - Objectives Objective #1 Stated Objective: Client will continue to consistently apply healthy coping skills to maintain progress made in IOP tx. Interventions: Through group therapy, client will review warning signs and triggers as well as healthy coping skills learned in IOP tx to successfully maintain gains while transitioning into outpatient therapy. Discharge Criteria: Client will have accomplished this goal when client's score on the DSM-5 cross-cutting measure has either maintained or reduced over a 12 week period. Target Date: 10/23/20 Review Date: 08/28/20 Status: open Objective #2 Stated Objective: Client will learn and utilize 2-3 maintenance strategies to prevent decompensation. Interventions: Through group therapy, client will be provided with education on healthy maintenance behaviors, relapse prevention techniques, and healthy coping strategies. Discharge Criteria: Client will have accomplished this goal when can report using at least 2 maintenance skills to prevent decompensation. Target Date: 10/23/20 Review Date: 08/28/20 Status: open
== END 2020-08-06 23:59 ==
LOC: BHOG 09:00
PROVIDERS: PCP Family Medicine; Referring Provider Psychiatry & Neurology Psychiatry; Visit Provider Psychiatry & Neurology Psychiatry
DX: F33.2 Major depressive disorder, recurrent severe without psychotic features (principal)
CPT/HCPCS: 90853

== ENCOUNTER 2020-08-07 09:00 | Outpatient (RCR) | payer BC, SELFPAY ==
[2019-09-25 11:19] VITALS: BMI 41.6
--- NOTE | 2020-08-11 07:21 | BH.MDN_ITS ---
Multi-Disciplinary Note - Note 60-min Individual Time Started:: 12:00 Date: 06/10/20 Purpose of session/treatment goals addressed:: To work on goal #1 of client's tx plan. Another goal was to identify barriers to engaging in self-care and discuss a small self-care goal client can complete as homework. Eye Contact:: Good - tearful throughout Motor Activity:: Restless Appearance:: Disheveled, Casual Speech:: Pressured Mood:: Anxious, Depressed Affect:: Full Thoughts:: Linear, Logical, Racing, No evidence of hallucinations/delusions noted Staff Interventions:: thought challenging, psychoeducation on: - self-talk, CBT techniques, strengths perspective, goal setting Client Response:: Client responded well to session, open to meeting with therapist. Client shared she spent some time reflecting on her first day in [facility] treatment with her . Shared he is supportive but does not fully understand mental health. Discussed feeling guilty about not being at work due to seeking mental health tx. Did well to challenge these thoughts and identify the need for [facility] level of care given client recent suicidality with vague plan just a few days ago. Client reflected ?I probably wouldn?t be alive if I didn?t seek treatment. I couldn?t keep going on like this and that?s not fair to my kids?. Reflected on reasons why she sought mental health help which included her children, , and close friends. Client however struggled significantly with identifying personal reasons she deserves to take care of her mental health needs for herself. Discussed struggling much of her life to believe she deserves things. Receptive of discussion on how trauma can influence beliefs about self. Connected with discussion on potential benefits of identifying personal reasons she deserves to take care of her own mental health needs. Went on to share this could also help increase motivation to engage in self-care as client had struggled to do so the previous night. Discussed plans to attempt journaling and identifying at least 5 reasons why she deserves to take time for her own mental health needs. Risks/Concerns:: Client denies any active suicidal ideations, plan, or intent as of 06/10/20. Client continues to feel depressed and questions the value she provides to others/relationships though is beginning to challenge this. Future oriented and family is her protective factor. Progress Toward Goals/Plan:: Client send day in php treatment. Some progress AEB reports of communicating with her about her mental health and take small steps toward increased engagement in self-care activities. Client reports making efforts to go for a walk and eat a healthy meal as she identified these as activities that may improve her mood. Continues to struggle with significant depression and negative self-talk. Struggles with poor concentration, with racing thoughts, low self-worth, inappropriate guilt, and poor self-care. Will continue PHP tx to prevent decompensation, increase application of healthy coping skills, improve self-talk, and improve functioning. Time Stopped:: 13:00
--- NOTE | 2020-08-11 07:22 | BH.MDN_ITS ---
Multi-Disciplinary Note - Note 60-min Individual Time Started:: 12:22 Date: 06/12/20 Purpose of session/treatment goals addressed:: To work on goal #1 of client's tx plan. Another goal was to review self-care wheel and identify she is doing well as well as areas she has been struggling with self-care. Discussed small self- care goals to enhance areas of self-care wheel she feels are lacking. Eye Contact:: Good Motor Activity:: Appropriate Appearance:: Casual Speech:: Appropriate Mood:: Anxious, Depressed Affect:: Congruent Thoughts:: Linear, Logical, No evidence of hallucinations/delusions noted Staff Interventions:: thought challenging, motivational interviewing, psychoeducation on: - habit stacking, self-care, goal setting Client Response:: Client responded well to session, open to meeting with therapist and engaged throughout. Client reports feeling ?a few steps above where I was a week ago, but [place]?. Discussed feeling more ?clear-headed? than she had at this time last week. Attributes this to taking a leave of absence form work as well as beginning to more actively make her mental health and self-care a priority. Spent a large portion of time reviewing client?s self-care wheel which was completed as homework. Client discussed feeling she is making progress to improve in a variety of areas such as physical health, personal, and emotional. Noted steps she is taking in these areas in clude: going to the gym for the first time in a year yesterday, reaching out to her supports more and trying to more honestly communicate, as well as ?reclaiming the mirror for myself? and actively practicing saying ?I love you? when looking at her reflection. Reports use of opposite action, reflecting on the benefits of completing each of these goals, and acknowledging them as accomplishments has aided in following through with them. Connected with concept of ?habit stacking? to continue to build off current self-care practices. Client went on to share struggling in self-care areas of spirituality, professional, and psychological needs. Worked with therapists to identify what realistic improvement could look like in each area. Discussed setting/maintaining healthy professional boundaries, engage in prayer during times that are not ?out of desperation?, as well as continue to learn more regarding her mental health. Reports plans to begin regular prayer routine tonight. Risks/Concerns:: Client denies any active suicidal ideations, plan, or intent as of 06/12/20. Client continues to feel depressed though reports improvements in this area. Reports she is future oriented and identifies family as protective factors. Progress Toward Goals/Plan:: Progress noted. Client reports reduced depression and anxiety. Indicates fewer crying spells and has been making more significant strides in improving her self-care. Discussed going to the gym for the first time in the past year which she notes feeling accomplished and more encouraged as a result. Able to identify several skills she is using to continue to improve her mood and support small self-care goals. Continues to struggle with unrealistic expectations of self, negative self-talk, and ruminations. Will continue PHP tx to prevent decompensation, increase application of healthy coping skills, improve self-talk, and improve functioning. Time Stopped:: 13:20
--- NOTE | 2020-08-11 07:23 | BH.MDN_ITS ---
Multi-Disciplinary Note - Note 45-min Individual Time Started:: 09:18 Date: 07/01/20 Purpose of session/treatment goals addressed:: Purpose of session was to address current symptoms and stressors, as well as review tx progress. Another goal was to discuss boundaries for return to work as well as create plan for communicating workplace boundaries. Eye Contact:: Good Motor Activity:: Appropriate Appearance:: Neat, Casual Speech:: Appropriate Mood:: Euthymic, Anxious Affect:: Full Thoughts:: Linear, Logical, No evidence of hallucinations/delusions noted Staff Interventions:: thought challenging, motivational interviewing, strengths perspective, goal setting - small goals for communicating and establishing healthy boundaries for return to work Client Response:: Client responded well to session, open to meeting with moe covarrubias. Client discussed feeling the past week has been more positive and that she has been doing well to better manage her emotions in times of increased stress. Cited an example of not becoming overwhelmed or irritable towards others when faced with car issues. Shared that challenging how she speaks with herself, taking breaks, and practicing mindfulness has been most beneficial in regulating her emotions. Noted feeling she has ?more space in my stress jar? to cope with unexpected stressors. In discussing ways to maintain these gains, pt identified taking on less upon returning to work and indicated a need for establishing clear boundaries in this regard. 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 Noted willingness to answer some questions and help in other ways. Expressed anxiety about communicating this as she does not want to upset or disappoint anyone. Did well to work with therapist to challenge associated distortions. Remainder of session spent reviewing communication skills for establishing clear boundaries when meeting with her boss/co-worker tomorrow. Reports plans to create a bullet point list of talking points to ensure she communicates all her needs and concerns, as well as engage in self-care activities before and after the discussion to reduce overall anxiety/stress levels. Risks/Concerns:: Client denies any suicidal ideations, plan, or intent as of 07/01/20. Progress Toward Goals/Plan:: Client continues to make progress AEB consistent reports of improved mood stability and emotion regulation, increased communication with supports, and willingness to address she would typically avoid out of anxiety. Client continues to report difficulties with consistently managing stressors and anxieties, rumination at times, continues to struggle with self-doubt and negative thoughts at times as well. Will continue IOP tx to promote consistent skill application, maintain mood stability, and prevent decompensation. Time Stopped:: 10:02
--- NOTE | 2020-08-21 14:00 | BH.SGPN.GN ---
Behaviors/Verbalizations/Mental Status: []Client alert and oriented, casual appearance. Eye contact good. Motor activity appropriate. Speech within normal limits. Affect congruent, mood euthymic. Thoughts linear, logical, no signs of hallucinations or delusions. Client Response/Progress/Benefit: []Pt responded well to session AEB pt openly sharing thoughts and feelings and completing worksheet. Pt shared she has been trying to recover from having covid. Pt reported one of the medications she was on to help recover from covid had negatively impacted her mental health. Pt stated she is starting to finally feel better mentally but still is quick to get tired. Pt reported mental health positive as successfully returning back to work. Pt stated she has been doing better with setting boundaries. Pt responded well to group discussion and review about self-care. Pt stated she will work on following self-care activities: exercise, drinking water, journal, trying a new recipe, watch a funny movie, go on a date with , and praying. Pt seemed to benefit from support from peers and identifying self-care plan. Pt to continue aftercare to continue use of healthy coping, challenge negative thoughts and prevent decompensation. Narrative Note: []
--- NOTE | 2020-08-28 14:00 | BH.SGPN.GN ---
Behaviors/Verbalizations/Mental Status: []Client alert and oriented, neat and casually dressed and groomed. Eye contact fair to good. Motor activity appropriate. Speech within normal limits. Affect congruent, mood euthymic. Thoughts linear, logical, no signs of hallucinations or delusions. Client Response/Progress/Benefit: []Client responded well to session, provided input, and listened attentively to peers. Reported feeling ?optimistic? today as client has been working on transitioning back to full-jackeline work after IOP treatment and recovering from COVID. Noted this is a positive but also a stressor as she has struggled with not taking on other?s work in the past. Expressed doing well to maintain the boundary with herself this first week back. Identified additional areas of continued progress which include continuing to practice self-compassion, learning to accept and express her emotions, journaling, and regularly communicating with supports. Client engaged in discussion on self-advocacy. Worked with group to identify the benefits of self-advocacy, as well as common barriers. Reviewed the personal bill of rights and shared belief that she has the right to ?to say ?I don?t know??. Worked with group to identify strategies to increase ability to advocate for oneself. Reported she wants to work on advocating for herself by reminding herself that she has the right to ?be uniquely myself?. Noted plans to take steps in practicing this by challenging herself to pursue things she may potentially find interesting and explore new hobbies. Client seemed to benefit from reviewing treatment progress and skill application, as well as learning about how to increase self-advocacy. Client to continue aftercare to promote gains, prevent regression, and further improve functioning. Narrative Note: []
--- NOTE | 2020-09-04 14:00 | BH.SGPN.GN ---
Behaviors/Verbalizations/Mental Status: []Eye contact is good. Motor activity is appropriate. Appearance is neat. Speech is Appropriate. Mood is euthymic. Affect is congruent. Thoughts are linear and logical. No evidence of psychosis. Client Response/Progress/Benefit: []Client responded well to session, client reports she has been doing well and feeling positive for the most part. Client did have a recent stressor with an in-law, but client felt like she handled the stress well. Client engaged well during the discussion of the components of self-compassion. Client connected with the benefits of self-compassion and participated in the activity of reframing a recent setback using self-compassion. Client used a recent experience with her that triggered self-hate. 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 Client appeared to benefit from practicing self-compassion and connecting with peers. Will continue aftercare to promote mood stability and reinforce healthy coping skills. Narrative Note: []
== END 2020-09-06 23:59 ==
LOC: BHOG 09:00
PROVIDERS: PCP Family Medicine; Referring Provider Psychiatry & Neurology Psychiatry; Visit Provider Psychiatry & Neurology Psychiatry
DX: F33.1 Major depressive disorder, recurrent, moderate (principal)
CPT/HCPCS: 90853

== ENCOUNTER 2020-09-11 10:23 | Outpatient (RCR) | payer BC, SELFPAY ==
[2019-09-25 11:19] VITALS: BMI 41.6
--- NOTE | 2020-09-11 17:26 | BH.MTP_ITS ---
Treatment Plan Review Date of Admission:: 07/31/20 Date of Treatment Plan Review:: 08/28/20 Admitting Diagnoses:: Major depressive disorder, recurrent, severe without psychosis F 33.2; generalized anxiety disorder; PTSD Current Diagnoses:: Major depressive disorder, recurrent, severe without psychosis F 33.2; generalized anxiety disorder; PTSD Patient's Response to Treatment:: Pt responding well to aftercare program AEB pt's consistent attendance, contributions during group discussions and self- report that she is applying skills learned outside treatment environment. Status of Current Problems and Symptoms: Client continues to experience mild symptoms of depression and anxiety per her DSM-5. Client's anxiety and depression scores have stayed the same since her IOP discharge. Client recently recovered from having Covid which was an additional stressor. She is starting to get back to work since IOP and having covid which client notes as a source of anxiety. Client reports ability to catch early warning signs and she reports she has been using coping skills consistently. Problem #1 Problem Name:: Pt will maintain or see a reduction in mental health symptoms Status of Goals:: obj 1 - complete with ongoing work encouraged. Per pt's DSM 5 scores her anxiety and depression scores have maintained the same since discharge from [facility]. Per DSM 5 scores at review her overall symptoms have decreased by 24%. obj 2 - complete with ongoing work encouraged. Client has been consistently reporting use of journaling, setting boundaries, self-compassion, and communicating with supports. Team Recommendations:: pt continue IOP aftercare group in addition to attending regular outpatient counseling in order to decrease depressive and anxious symptoms as well as promote further gains.
--- NOTE | 2020-09-18 14:00 | BH.SGPN.GN ---
Behaviors/Verbalizations/Mental Status: []Client alert and oriented, neatly dressed and groomed. Eye contact good. Motor activity appropriate. Speech within normal limits. Mood euthymic. Affect congruent. Thoughts linear, logical, no signs of hallucinations or delusions. Client Response/Progress/Benefit: []Client responded well to session, reports feeling ?excited? today and shared she had a great visit with her family, even though the visit was under sad circumstances. Client has been consistent with self-care and she reports she is proud of herself. Contributing during discussion of vulnerability and benefits of practicing vulnerability. Shared personal experience of how being vulnerable with her mental health has improved client?s relationship with her . Discussed ways we avoid feeling vulnerable and how this negatively affects mental health and relationships. Client shared she wants to continue to be vulnerable by exploring who she is and ?re-engaging outside my normal roles.? Appeared to benefit from reflecting on the positive impact vulnerability can have on mental health. Will continue IOP aftercare to promote gains and reinforce healthy coping skills. Narrative Note: []
--- NOTE | 2020-09-25 14:00 | BH.SGPN.GN ---
Behaviors/Verbalizations/Mental Status: []Client alert and oriented, casually dressed and groomed. Eye contact good. Motor activity appropriate. Speech within normal limits. Affect congruent. Mood euthymic. Thoughts linear, logical, no signs of hallucinations or delusions. Client Response/Progress/Benefit: []Client responded well to session AEB sharing thoughts and feelings and listening attentively to peers. Client reported feeling ?tired today as she has recently cut caffeine and gluten out of her diet for medical reasons. Reports feeling better physically but still adjusting energy islas to not having caffeine. Notes this has been a ?good week? and she has been able to do a lot of self-reflection, meditations, and mindfully focus on how she treats and speaks to herself. Reflected this has improved overall self-care as a result. Benefited from reflecting on areas in which she continues to progress, as well as encouragement provided by the group as well. Client contributed to the discussion on mindfulness and it?s mental, physical, and interpersonal benefits. Client attentive during discussion reviewing and demonstrating various mindfulness practices. Created weekly plan on how client will practice mindfulness over the next 7 days. Appeared to benefit from connecting with peers and creating plan to improve ability to be present. Pt plan included: trying a new recipe, walking, yoga, completing a health assessment, deep breathing, and spending some time laying in the grass. Will continue IOP aftercare to continue use of healthy coping skills, challenge distorted thoughts and maintain gains made. Narrative Note: []
--- NOTE | 2020-09-25 17:28 | BH.MTP_ITS ---
Treatment Plan Review Date of Admission:: 07/31/20 Date of Treatment Plan Review:: 09/25/20 Admitting Diagnoses:: Major depressive disorder, recurrent, severe without psychosis F 33.2; generalized anxiety disorder; PTSD Current Diagnoses:: Major depressive disorder, recurrent, severe without psychosis F 33.2; generalized anxiety disorder; PTSD Patient's Response to Treatment:: Client is engaged in IOP aftercare as evidenced by client's participation in group discussions, self-report of consistently applying coping skills, and self-report of improved mood. Client is an active group member and she consistently follows up with outpatient coun seling. Status of Current Problems and Symptoms: Client continues to experience mild symptoms of depression and anxiety per her DSM-5. Client's anxiety and depression scores have slightly decreased since her IOP discharge. Client identifies having to recently make changes to her diet as a stressor due to medical reasons. Client reports ability to catch early warning signs and she reports she has been using coping skills consistently. Problem #1 Problem Name:: Pt will maintain or see a reduction in mental health symptoms Status of Goals:: Objective 1- complete with ongoing work encouraged. Per client's DSM 5 scores at review depression scores have gone down 33% and anxiety has gone down 60%. Overall symptoms have decreased by 33%. Objective 2- complete with ongoing work encouraged. Client has been consistently reporting use of journaling, self-care, meditation, communication and setting boundaries. Team Recommendations:: Team recommends pt continue IOP aftercare group in addition to attending regular outpatient counseling in order to decrease depressive and anxious symptoms as well as promote further gains.
--- NOTE | 2020-10-02 14:00 | BH.SGPN.GN ---
Behaviors/Verbalizations/Mental Status: []Client alert and oriented, neatly dressed and groomed. Eye contact good. Motor activity appropriate. Speech within normal limits. Affect constricted, mood euthymic. Thoughts linear, logical, no signs of hallucinations or delusions. Client Response/Progress/Benefit: []Pt responded well to session, attentive and taking notes. Pt reports feeling ?optimistic? today as pt has been consistently making herself a priority. Pt reports she has lost 16 pounds and she feels stable enough to begin working on her past trauma. Pt worked cooperatively with group to identify benefits of having a daily routine which included: sense of accomplishment, increased motivation, and mental health maintenance. Pt engaged in brainstorming of various daily routine ideas. Pt completed task of creating a daily routine focusing on exercising, eating healthy, cleaning, and taking walks as well as identified a supportive mantra. Pt shared a copy of her routine and shared her mantra of ?always remember that you have enough, you do enough, and most importantly, you are enough.? Pt seemed to benefit from support from peers and learning about benefits of routine. Pt to continue aftercare group to improve consistent use of healthy coping, maintain gains, and prevent decompensation. Narrative Note: []
== END 2020-10-07 23:59 ==
LOC: BHOG 10:23
PROVIDERS: PCP Family Medicine; Referring Provider Psychiatry & Neurology Psychiatry; Visit Provider Psychiatry & Neurology Psychiatry
DX: F33.2 Major depressive disorder, recurrent severe without psychotic features (principal); F43.10 Post-traumatic stress disorder, unspecified; F41.1 Generalized anxiety disorder; Z79.899 Other long term (current) drug therapy
CPT/HCPCS: 90853

== ENCOUNTER 2020-10-09 09:58 | Outpatient (RCR) | payer BC, SELFPAY ==
[2020-10-08 00:37] VITALS: BMI 41.6
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
--- NOTE | 2020-10-30 14:00 | BH.SGPN.GN ---
Behaviors/Verbalizations/Mental Status: []Client alert and oriented, neatly dressed. Eye contact good. Motor activity appropriate. Speech within normal limits. Affect full, mood euthymic. Thoughts linear, logical, no signs of hallucinations or delusions. Client Response/Progress/Benefit: []Pt responded well to session AEB pt providing input during discussion and listening attentively to peers. Pt reported feeling ?proud? of herself today as it is her last day of aftercare and pt has reflected on the growth she has made. Pt shared ?this was the year I save myself and I made myself a priority.? Pt has lost 30 pounds and reports a better work-life balance. Pt engaged in discussion about self-love. Connected with others that although self-care is challenging, it is vital for mental health wellness. Group discussed barriers they have faced that prevented self-love. Pt reviewed the 30 ways to improve self-love and selected two strategies to practice. Pt seemed to benefit from reviewing treatment progress and stressors as well as learning about how to increase self-love. Pt will discharge from aftercare today as she has accomplished her tx goals and will continue with outpatient counseling. Narrative Note: []
--- NOTE | 2020-10-30 15:15 | BH.DS ---
Discharge Summary - Demographics Date of Admission:: 07/31/20 Discharge Date: 10/30/20 Presenting Problems at Admission:: Client discharged from IOP tx and transitioned to IOP aftercare to maintain gains client made in IOP and to reinforce healthy coping skills. At admission to IOP aftercare, client reported experiencing mild symptoms of anxiety and depression. Client was also experiencing life stressors including family stress, work stress, parenting stress, COVID, and maintaining mental wellness. Client also continued to experience negative thinking and self-criticism at times. Despite these stressors, client reported ability to cope with her mental health and was activity using healthy skills. Discharge Diagnoses:: Major depressive disorder, recurrent, severe without psychosis F 33.2 (resolving); generalized anxiety disorder; PTSD Reason for Discharge:: Client has accomplished her tx goals AEB her ability to maintain mood stability and gains made in IOP. Client will transition to traditional outpatient counseling. - Treatment Progress During Treatment & Response: Client responded well and made progress in IOP aftercare as evidenced by client's participation in group discussions and self-report of consistently applying coping skills. Client's overall DSM-5 scores decreased by 62% more after completing aftercare. Client?s depression decreased by an additional 67%, thoughts of actually hurting oneself decreased by 100%, and anxiety decreased by 60% since IOP discharge which is significant. Additionally, at discharge client was reporting an improved mood, more positive thinking patterns, consistent use of healthy coping skills, better boundaries with work, better relationships, and significantly more self-care. Issues Still to be Addressed:: Client reports high motivation to continuing improving her physical health, process trauma from her past, and to increase self-love. Discharge Recommendations/Instructions:: Client will continue to see her PCP for medication management. Client also will continue with outpatient counseling through [facility]. Discharge Handout: Complete Discharge Handout with client on aftercare options and continuity of care.
== END 2020-10-31 08:34 | disposition home or self-care (01) ==
LOC: BHOG 09:58
PROVIDERS: PCP Family Medicine; Referring Provider Psychiatry & Neurology Psychiatry; Visit Provider Psychiatry & Neurology Psychiatry
DX: F33.2 Major depressive disorder, recurrent severe without psychotic features (principal); F41.1 Generalized anxiety disorder; F43.10 Post-traumatic stress disorder, unspecified
CPT/HCPCS: 90853

== ENCOUNTER 2021-02-19 16:25 | Emergency (ER) | payer BC, SELFPAY ==
[2021-02-19 16:26] VITALS: BP 168/108; PULSE 84; RESP 17; TEMP 36.4; O2SAT 98; BMI 40.8
--- NOTE | 2021-02-19 16:47 | CT_ITS ---
EXAMINATION : Head CT w/out contrast HISTORY : Pain COMPARISON : 12/09/2013. TECHNIQUE : Multiple contiguous axial images were obtained from the skull base to the vertex without intravenous contrast. A radiation dose optimization technique was used for this scan. FINDINGS : The ventricles and sulci are normal in size. There is no evidence for acute intracranial hemorrhage, mass effect, or midline shift. There is no extra-axial fluid collection. There is normal martinez-white differentiation, without CT evidence of acute ischemia or infarct. The skull base and calvarium are unremarkable. The orbits are unremarkable. The paranasal sinuses are clear. The mastoid air cells are well-aerated. The soft tissues are unremarkable. CT/Brain/Head without Contrast IMPRESSION: No acute intracranial abnormality. Electronically Signed: Joel Christensen MD at 17:48 EST Tel , Service support ,
[2021-02-19] MEDS: Ketorolac 15 MG/ML Vial IV (17:00)
[2021-02-19] MEDS: DiphenhydrAMINE 50 MG/ML Syringe 25 MG IV (17:01)
[2021-02-19] MEDS: Metoclopramide 10 MG/2 ML Vial IV (17:01)
[2021-02-19 17:07] LABS: Absolute Neutrophil Count 3.6 X10^3/uL (2.0-7.7); Basophil# 0.03 X10^3/uL; Basophil% 0.4 % (0-1); Eosinophils% 2.9 % (0-5); Hematocrit 41.9 % (37-47); Hemoglobin 14.7 g/dL (12.0-15.0); Lymphocyte % 35.3 % (19-41); Mean Corp Hgb Conc 35.1 g/dL (32-36); Mean Corpuscular Hgb 29.8 pg (27.0-32.0); Mean Platelet Vol. 8.9 fl (6.2-12.0); Monocyte# 0.41 X10^3/uL; NRBC Flagged by Analyzer 0 % (0-5); Neutrophil # 3.64 X10^3/uL (2.7-7.7); Neutrophil % 53.8 % (47-70); Platelet Count 187 K/mm3 (150-450); RBC Distribution Width SD 40.3 fl (35.1-43.9); Red Blood Count 4.93 M/mm3 (4.2-5.4); White Blood Count 6.8 K/mm3 (4.4-11.0)
[2021-02-19 17:25] LABS: Anion Gap 6 (5-15); BUN 17 mg/dL (7-18); BUN/Creat Ratio 19.6 RATIO (10-20); Calcium,Total 9.4 mg/dL (8.5-10.1); Chloride 111 mmol/L (98-107); Creatinine, Serum 0.87 mg/dL (0.55-1.02); EST Glomerular Filtration Rate 78 mL/min (>60); Est Glom Filt Rate - Afr Amer 94 mL/min (>60); Estimated Creatinine Clearance 75.71 ml/min; Glucose 105 mg/dL (74-106); Potassium 3.6 mmol/L (3.5-5.1); Sodium Level 141 mmol/L (136-145)
[2021-02-19 18:37] VITALS: BP 117/86; PULSE 71; O2SAT 95
--- NOTE | 2021-02-19 18:37 | EDS_ITS ---
HPI History of Present Illness Chief Complaint: Headache Informant: patient Onset/Context/Timing Onset: Hours Context: Sudden Timing: Continuous Quality -Headache: Positive for Dull; Negative for Similar Prior Headaches Location: Predominately right side Current Severity: Severe Maximum Severity: Severe Worsened by: Nothing specific Relieved by: Nothing Associated Symptoms/Injury Associated Symptoms: Positive for Nausea, Vomiting, Sinus Pressure and Photophobia; Negative for Fever, Sore Throat, Numbness, Tingling, Preceding Aura, Visual Changes, Blurred Vision and Visual Loss Injury - TOLENTINO: Negative for Direct Trauma Narrative Narrative: Patient is a 40-year-old woman who is on antibiotics for presumed sinus infection. She has been on antibiotics sixth November. She denies fever, chills night sweats. She denies rhinorrhea, congestion postnasal drainage. She denies sore throat. She denies double vision, blurred vision loss of vision. She does have ringing in her right ear and decreased hearing in her left ear. She denies neck pain or neck stiffness. She denies cardiac respiratory symptoms. She had nausea with vomiting x1. Headache started somewhat abruptly. There is no family history of subarachnoid hemorrhage. She denies paresthesia, anesthesia medics. She denies problems with balance. She states she feels weird. She has no history of trauma. She has allergy to penicillin and ragweed. There is no history of allergic rhinitis. Prior similar symptoms: No Recent Illness/Hospitalization: No PFSH PFSH Home Medications escitalopram oxalate [Lexapro] 10 mg PO DAILY 30 Days #30 tab 07/02/20 [Rx Last Taken Unknown] Allergy/AdvReac Type Severity Reaction Status Date / Time amoxicillin trihydrate Allergy Rash Verified 02/19/21 16:28 [From Augmentin] potassium clavulanate Allergy Rash Verified 02/19/21 16:28 [From Augmentin] ragweed pollen Allergy Shortness Verified 02/19/21 16:28 of breath Social History (Updated 02/19/21 @ 18:[address] Favian Jha MD) household members: significant other Smoking Status: Never smoker alcohol intake: current alcohol intake frequency: a few times a month substance use type: does not use ROS ROS ED Constitutional Constitutional ED: Denies chills, fever(s), subjective, sweats or weight loss Eyes Eyes: Reports blurry vision bilateral and change in vision; Denies diplopia ENT ENT ED: Reports rhinorrhea; Denies ear pain or sore throat Cardiovascular Cardiovascular: Denies chest pain, orthopnea, palpitations or paroxysmal nocturnal dyspnea Respiratory/Chest Respiratory/Chest: Denies cough, dyspnea, dyspnea on exertion, orthopnea or paroxysmal nocturnal dyspnea Gastrointestinal Gastrointestinal: Reports nausea and vomiting; Denies abdominal pain or diarrhea Genitourinary Genitourinary ED: Denies dysuria, hematuria or urinary frequency Musculoskeletal Musculoskeletal: Denies arthralgias, back pain, myalgias or neck pain Integumentary Denies rash Neurologic Neurologic: Reports headache(s); Denies paresthesias or weakness Psychiatric Psychiatric: Denies depression Endocrine Endocrinology: Denies polydipsia, polyphagia or polyuria Hematologic/Lymphatic Hematologic/Lymphatic: Denies easy bleeding or easy bruising EXAM Physical Exam Const Vital Signs: 02/19/21 16:26 Temperature 97.6 F L Temperature Source Temporal Pulse Rate 84 Respiratory Rate 17 Blood Pressure 168/108 H Blood Pressure Mean 128 Pulse Ox 98 Oxygen Delivery Method Room Air Positive well nourished, well developed and obese General Appearance ED: well developed and other Patient appears uncomfortable. She was crying. She is also upset. ; Negative for cyanotic, diaphoretic or pallor Nutritional Appearance: obese HEENT Reports normocephalic, TM's clear and moist mucous membranes atraumatic; Negative for vesicular rash Face and Sinus: sinus tenderness Positive for frontal (Right side) and maxillary (Right side) Tympanic Membrane ED: Yes TM's clear Eyes PERRL and EOMs intact bilaterally General Eye ED: Negative for pale conjunctiva or scleral icterus Neck no lymphadenopathy, supple, no meningeal signs and no JVD Resp normal respiratory effort and clear to auscultation bilaterally Cardio regular rate, regular rhythm, S1 normal heart sound and no murmurs GI non-tender and non-distended Auscultation: normoactive bowel sounds Palpation: soft Extremity normal to inspection and full ROM General Extremety ED: Negative for edema or tenderness General Extremity: Negative for edema Neuro oriented x3, CN's II-XII intact bilaterally and no sensory deficits noted Neuro Narrative: Negative clonus or Babinski sign bilaterally Lorrie Coma Scale: document GCS findings Spontaneous Obeys Commands Oriented 15 Sensorium / Orientation: awake and alert Coordination / Balance: [id number] test normal Motor Exam: strength 5/5 throughout Psych Mood & Affect: tearful Skin General Skin Exam: elasticity normal; Negative for jaundice or pallor Lesions: no lesions Rashes: no rashes Nails: normal MDM MDM MDM Narrative Medical decision making narrative: With abrupt onset of headache and reported recurrent sinus infection will obtain CT to evaluate for subarachnoid hemorrhage, sinusitis, blood work was obtained. Patient was medicated with IV Benadryl, ketorolac and Reglan. She was reassessed at 1840. Her headache has improved markedly. She is now smiling and laughing. Lab Data Attestation: I reviewed the patient's lab results. Labs: Laboratory Results - last 24 hr 02/19/21 02/19/21 16:50 16:50 WBC 6.8 RBC 4.93 Hgb 14.7 Hct 41.9 MCV 85.0 MCH 29.8 MCHC 35.1 RDW Std Deviation 40.3 RDW Coeff of Katie 13.0 Plt Count 187 MPV 8.9 Immature Gran % (Auto) 1.600 H Neut % (Auto) 53.8 Lymph % (Auto) 35.3 [place] % (Auto) 6.0 Eos % (Auto) 2.9 Baso % (Auto) 0.4 Absolute Neuts (auto) 3.6 Absolute Lymphs (auto) 2.40 Nucleated RBC % 0 Sodium 141 Potassium 3.6 Chloride 111 H Carbon Dioxide 24.0 Anion Gap 6 BUN 17 Creatinine 0.87 Estim Creat Clear Calc 75.71 Est GFR (MDRD) Af Amer 94 Est GFR (MDRD) Non-Af 78 BUN/Creatinine Ratio 19.6 Glucose 105 Calcium 9.4 Radiography Diagnostic Testing: Clinical Impression(s) from Imaging Studies Brain CT 02/19/21 16:47 IMPRESSION: No acute intracranial abnormality. Electronically Signed: Joel Christensen MD at 17:48 EST Tel , Service support , Discharge Plan Triage Chief Complaint: Headache ED Provider: Favian Jha Dx/Rx/DC Orders Clinical Impression: Headache, migraine, intractable Instructions: ED, Migraine (Classical) Prescriptions: No Action escitalopram oxalate [Lexapro] 10 mg tablet 10 mg PO DAILY 30 Days Qty: 30 RF: 1 Primary Care Provider: Arvind Martinez Referrals: Arvind Martinez MD [Primary Care Provider] - As Needed Disposition Disposition: Home, Self Care
== END 2021-02-19 18:47 | disposition home or self-care (01) ==
PROVIDERS: Emergency Provider Emergency Medicine; PCP Family Medicine; Visit Provider Emergency Medicine
DX: G43.919 Migraine, unspecified, intractable, without status migrainosus (principal); Z68.41 Body mass index [BMI] 40.0-44.9, adult; H91.92 Unspecified hearing loss, left ear; H93.11 Tinnitus, right ear; E66.9 Obesity, unspecified
CPT/HCPCS: 70450; 80048; 85025; 96374; 96375; 99283; J7030; J7050

== ENCOUNTER 2021-03-26 15:35 | Outpatient (CLI) | payer BC, SELFPAY | END 2021-03-26 23:59 | disposition home or self-care (01) | PROVIDERS: PCP Family Medicine; Visit Provider Otolaryngology | DX: Z20.822 Contact with and (suspected) exposure to COVID-19 (principal) | CPT/HCPCS: 87635; U0003; U0005 ==